=== PATIENT | female | born 1980 | race Caucasian/White ===

== ENCOUNTER 2020-03-08 18:18 | Emergency (ER) | payer MEDICAID ==
--- NOTE | 2020-03-08 20:13 | EDM.PDOC ---
ED HPI GENERAL MEDICAL PROBLEM - General Chief Complaint: Diabetic Complaint Stated Complaint: HIGH BLOOD SUGAR Time Seen by Provider: 03/08/20 19:30 Source of Information: Reports: Patient History Limitations: Reports: No Limitations - History of Present Illness INITIAL COMMENTS - FREE TEXT/NARRATIVE: 39-year-old female with history of type 2 diabetes for several years presents to this emergency department for evaluation of 3 concerns that include 1. Burning and numbness in both feet, 2. Constipation with no bowel movement in past 2 days and 3. Intermittent dizziness. Patient monitors blood sugars regularly and tend to run in the 200 range. Patient unaware of what and HA1C is or what her last one is. Patient reports compliance with her medication regimen and is not on insulin. Patient reports that the above symptoms are all chronic and not acute. She states that her primary care doctor wanted to see what the medications would do for her symptoms last time she saw him about 1 month ago. Patient denies any fever, vomiting, diarrhea. No other symptoms reported at this time. Patient reports that she does monitor her feet daily with inspection. Foot Pain Score (Numeric/FACES): 9 - Related Data Allergies Allergy/AdvReac Type Severity Reaction Status Date / Time bee venom protein (honey bee) Allergy Other Verified 03/08/20 19:20 codeine Allergy Other Verified 03/08/20 19:20 Home Meds: Home Meds Albuterol Sulfate [Proair Hfa] 8.5 gm IH Q4H 03/08/20 [History] Albuterol [Proventil Neb Soln] 2.5 mg .XX Q6H PRN 03/08/20 [History] Aspirin 81 mg PO DAILY 03/08/20 [History] Budesonide [Pulmicort] 0.5 mg INH ASDIRECTED PRN 03/08/20 [History] Cetirizine [ZyrTEC] 10 mg PO DAILY 03/08/20 [History] Colestipol [Colestipol HCl] 1 gm PO DAILY 03/08/20 [History] EPINEPHrine [Auvi-Q] 1 injection SQ ASDIRECTED PRN 03/08/20 [History] Lactase [Lactaid] 3,000 unit PO DAILY 03/08/20 [History] Levothyroxine [Synthroid] 100 mcg PO ACBREAKFAST 03/08/20 [History] Mirtazapine 30 mg PO BEDTIME 03/08/20 [History] Multivit,Iron,Minerals/Lutein [Essential Balance] 1 tab PO DAILY 03/08/20 [History] OLANZapine [Olanzapine] 20 mg PO DAILY 03/08/20 [History] OXcarbazepine [Oxcarbazepine] 600 mg PO BID 03/08/20 [History] Propranolol HCl [Propranolol] 80 mg PO DAILY 03/08/20 [History] clonazePAM [Clonazepam] 1 mg PO BID 03/08/20 [History] glipiZIDE [Glipizide ER] 10 mg PO DAILY 03/08/20 [History] hydrOXYzine HCL [Hydroxyzine HCl] 50 mg PO BEDTIME 03/08/20 [History] lamoTRIgine [Lamotrigine] 100 mg PO BID 03/08/20 [History] metroNIDAZOLE [metroNIDAZOLE 0.75% Cream] 1 applic TOP BID 03/08/20 [History] polyethylene glycoL 3350 [MiraLAX] 17 gm PO BEDTIME PRN #7 packet 03/08/20 [Rx] Past Medical History HEENT History: Reports: Impaired Vision Respiratory History: Reports: Asthma, Sleep Apnea Other Gastrointestinal History: constipation 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: Musculoskeletal History: Reports: Arthritis Other Musculoskeletal History: in feet Neurological History: Reports: Migraines, Seizure Psychiatric History: Reports: Anxiety, Depression, PTSD Endocrine/Metabolic History: Reports: Diabetes, Type II Dermatologic History: Reports: Eczema Other Dermatologic History: severe dry skin - Past Surgical History Female Surgical History: Reports: Section, Mastectomy Other Female Surgeries/Procedures: bilateral mastectomy for cysts Endocrine Surgical History: Reports: Thyroidectomy Social & Family History - Family History Family Medical History: Noncontributory - Tobacco Use Smoking Status *Q: Never Smoker - Caffeine Use Caffeine Use: Reports: Coffee - Recreational Drug Use Recreational Drug Use: No ED ROS GENERAL - Review of Systems Review Of Systems: Comprehensive ROS is negative, except as noted in HPI. ED EXAM GENERAL NO PERIP PULSE - Physical Exam Exam: See Below Exam Limited By: No Limitations General Appearance: Alert Ears: Normal External Exam, Hearing Grossly Normal Nose: Normal Inspection, Normal Mucosa Throat/Mouth: Normal Inspection, Normal Lips, Normal Teeth, Normal Gums, Normal Oropharynx, Normal Voice, No Airway Compromise Head: Atraumatic, Normocephalic Neck: Normal Inspection, Supple, Non-Tender, Full Range of Motion Respiratory/Chest: No Respiratory Distress, Lungs Clear, Normal Breath Sounds, No Accessory Muscle Use, Chest Non-Tender Cardiovascular: Normal Peripheral Pulses, Regular Rate, Rhythm, No Edema, No Gallop, No JVD, No Murmur, No Rub GI/Abdominal: Normal Bowel Sounds, Soft, Non-Tender, No Organomegaly, No Distention, No Abnormal Bruit, No Mass Back Exam: Normal Inspection, Full Range of Motion, NT Extremities: Normal Inspection, Normal Range of Motion, Non-Tender, Normal Capillary Refill, No Pedal Edema Neurological: Alert, Oriented, CN II-XII Intact, Normal Cognition, Normal Gait, No Motor/Sensory Deficits Skin Exam: Warm, Dry, Intact Course - Vital Signs Last Recorded V/S: Last Vital Signs Temp 98.0 F 03/08/20 19:14 Pulse 91 03/08/20 19:14 Resp 16 03/08/20 19:14 BP 132/75 03/08/20 19:14 Pulse Ox 96 03/08/20 19:14 - Orders/Labs/Meds Labs: Laboratory Tests 03/08/20 03/08/20 03/08/20 Range/Units 19:54 19:54 19:54 WBC 9.1 (4.5-11.0) K/uL RBC 4.11 (3.30-5.50) M/uL Hgb 12.4 (12.0-15.0) g/dL Hct 36.3 (36.0-48.0) % MCV 88 (80-98) fL MCH 30 (27-31) pg MCHC 34 (32-36) % Plt Count 323 (150-400) K/uL VBG pH 7.394 (7.350-7.450) Sodium 143 (140-148) mmol/L Potassium 4.0 (3.6-5.2) mmol/L Chloride 107 (100-108) mmol/L Carbon Dioxide 26 (21-32) mmol/L Anion Gap 10.4 (5.0-14.0) mmol/L BUN 7 (7-18) mg/dL Creatinine 0.9 (0.6-1.0) mg/dL Est Cr Clr Drug Dosing 89.85 mL/min Estimated GFR (MDRD) > 60 (>60) Glucose 166 H (74-106) mg/dL Calcium 9.0 (8.5-10.1) mg/dL Departure - Departure Time of Disposition: 21:00 Disposition: Home, Self-Care 01 Condition: Good Clinical Impression: Hypoglycemia, Diabetic neuropathy, Diabetic gastroparesis, Constipation - Discharge Information Prescriptions: polyethylene glycoL 3350 [MiraLAX] 17 gm PO BEDTIME PRN #7 packet PRN Reason: Constipation Instructions: Diabetes Mellitus and Foot Care, Neuropathic Pain, Hypoglycemia, Constipation, Adult Referrals: Norberto Conway NP [Primary Care Provider] - Forms: ED Department Discharge Additional Instructions: 1. Schedule a follow-up appointment in the next 5 to 10 days with your primary care doctor for discussion of your diabetic management, neuropathy and other symptoms. 2. Continue to take your medications as directed. 3. Consider taking a fiber supplement, increase water intake and utilize MiraLAX as directed to facilitate regular bowel movements and decrease constipation. 4. Visually inspect your feet daily. 5. Seek immediate medical attention with any rapidly worsening symptoms or concerns. Sepsis Event Note (ED) - Evaluation Sepsis Screening Result: No Definite Risk - Focused Exam Vital Signs: Vital Signs Temp Pulse Resp BP Pulse Ox 03/08/20 19:14 98.0 F 91 16 132/75 96 - Assessment/Plan Assessment:: 39-year-old female with type 2 diabetes managed with oral anti-hyperglycemics presents with concerns regarding diabetic neuropathy of the feet. This is not an acute problem. She does not have any acute medical emergency. There is no evidence of ketoacidosis or other diabetic crisis. She has no evidence of foot ulceration. She is advised to schedule follow-up with her primary care doctor to discuss diabetic neuropathy and management options. In addition she complains of constipation without evidence of obstruction. Advised on increase water intake, addition of fiber to diet and use of MiraLAX. Patient also reports dizziness. She is asymptomatic at this time. Diagnostic labs reviewed and within normal limits. Medically stable. Advise further outpatient evaluation. Medication for hospitalization and further emergency department testing at this time. Medical screening examination completed patient is medically stable. Discharge home. Plan: 1. Continue to take your outpatient medications as directed by your primary care doctor. 2. Schedule a follow-up appointment with your primary care doctor in the next 5 to 10 days to discuss your diabetic management plan and diabetic neuropathy of the feet. 3. Closely monitor your feet with visual inspection daily to ensure no developing ulcerations. 4. Increase your water intake and add fiber to your diet. May use a laxative such as MiraLAX to help facilitate bowel movements and decrease constipation. 5. Seek immediate medical attention in an emergency setting if you develop rapidly worsening symptoms or concerns.
== END 2020-03-08 21:57 | disposition home or self-care (01) ==
LOC: JP.ED 18:18
DX: E11.40 Type 2 diabetes mellitus with diabetic neuropathy, unspecified (principal); E11.649 Type 2 diabetes mellitus with hypoglycemia without coma; E11.43 Type 2 diabetes mellitus with diabetic autonomic (poly)neuropathy; K31.84 Gastroparesis; K59.00 Constipation, unspecified; J45.909 Unspecified asthma, uncomplicated; M19.90 Unspecified osteoarthritis, unspecified site; Z79.82 Long term (current) use of aspirin; F41.9 Anxiety disorder, unspecified; F32.9 Major depressive disorder, single episode, unspecified; Z79.899 Other long term (current) drug therapy; Z91.030 Bee allergy status; Z88.5 Allergy status to narcotic agent
CPT/HCPCS: 36415; 80048; 82800; 85027; 99283; 99284

== ENCOUNTER 2020-05-23 13:59 | Emergency (ER) | payer MEDICAID ==
--- NOTE | 2020-05-23 15:39 | EDM.PDOC ---
ED HPI GENERAL MEDICAL PROBLEM - General Chief Complaint: General Stated Complaint: NAUSEA, LIGHTHEADED, ALLERGIES Time Seen by Provider: 05/23/20 15:29 Source of Information: Reports: Patient, RN Notes Reviewed History Limitations: Reports: No Limitations - History of Present Illness INITIAL COMMENTS - FREE TEXT/NARRATIVE: 40-year-old female presents emergency department a complaint of shortness of breath runny nose and chest tightness when she is in her house, she admits to smelling something funny in the house since she goes outside of the house all of her symptoms resolved. This has been going on for the last couple of weeks - Related Data Allergies Allergy/AdvReac Type Severity Reaction Status Date / Time bee venom protein (honey bee) Allergy Other Verified 05/23/20 14:26 codeine Allergy Other Verified 05/23/20 14:26 Home Meds: Home Meds Albuterol Sulfate [Proair Hfa] 8.5 gm IH Q4H 03/08/20 [History] Albuterol [Proventil Neb Soln] 2.5 mg .XX Q6H PRN 03/08/20 [History] Aspirin 81 mg PO DAILY 03/08/20 [History] Budesonide [Pulmicort] 0.5 mg INH ASDIRECTED PRN 03/08/20 [History] Cetirizine [ZyrTEC] 10 mg PO DAILY 03/08/20 [History] Colestipol [Colestipol HCl] 1 gm PO DAILY 03/08/20 [History] EPINEPHrine [Auvi-Q] 1 injection SQ ASDIRECTED PRN 03/08/20 [History] Lactase [Lactaid] 3,000 unit PO DAILY 03/08/20 [History] Levothyroxine [Synthroid] 100 mcg PO ACBREAKFAST 03/08/20 [History] Mirtazapine 30 mg PO BEDTIME 03/08/20 [History] Multivit,Iron,Minerals/Lutein [Essential Balance] 1 tab PO DAILY 03/08/20 [History] OLANZapine [Olanzapine] 20 mg PO DAILY 03/08/20 [History] OXcarbazepine [Oxcarbazepine] 600 mg PO BID 03/08/20 [History] Propranolol HCl [Propranolol] 80 mg PO DAILY 03/08/20 [History] clonazePAM [Clonazepam] 1 mg PO BID 03/08/20 [History] glipiZIDE [Glipizide ER] 10 mg PO DAILY 03/08/20 [History] hydrOXYzine HCL [Hydroxyzine HCl] 50 mg PO BEDTIME 03/08/20 [History] lamoTRIgine [Lamotrigine] 100 mg PO BID 03/08/20 [History] metroNIDAZOLE [metroNIDAZOLE 0.75% Cream] 1 applic TOP BID 03/08/20 [History] polyethylene glycoL 3350 [MiraLAX] 17 gm PO BEDTIME PRN #7 packet 03/08/20 [Rx] Past Medical History HEENT History: Reports: Impaired Vision Respiratory History: Reports: Asthma, Sleep Apnea Gastrointestinal History: Reports: Other (See Below) Other Gastrointestinal History: constipation 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 History: Reports: 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: Musculoskeletal History: Reports: Arthritis Other Musculoskeletal History: in feet Neurological History: Reports: Migraines, Seizure Psychiatric History: Reports: Anxiety, Depression, PTSD Endocrine/Metabolic History: Reports: Diabetes, Type II, Obesity/BMI 30+ Dermatologic History: Reports: Eczema Other Dermatologic History: severe dry skin - Past Surgical History Head Surgeries/Procedures: Reports: None HEENT Surgical History: Reports: None Respiratory Surgical History: Reports: None GI Surgical History: Reports: None Female Surgical History: Reports: Section, Mastectomy Other Female Surgeries/Procedures: bilateral mastectomy for cysts Endocrine Surgical History: Reports: Thyroidectomy Neurological Surgical History: Reports: None Musculoskeletal Surgical History: Reports: None Dermatological Surgical History: Reports: None Social & Family History - Family History Family Medical History: No Pertinent Family History - Tobacco Use Tobacco Use Status *Q: Never Tobacco User - Caffeine Use Caffeine Use: Reports: Coffee - Recreational Drug Use Recreational Drug Use: No ED ROS GENERAL - Review of Systems Review Of Systems: See Below Constitutional: Reports: No Symptoms HEENT: Reports: Rhinitis, Sinus Problem Respiratory: Reports: Shortness of Breath, Cough Cardiovascular: Reports: Dyspnea on Exertion ED EXAM, GENERAL - Physical Exam Exam: See Below Exam Limited By: No Limitations General Appearance: Alert, WD/WN, No Apparent Distress Nose: Normal Inspection, Normal Mucosa, No Blood Respiratory/Chest: No Respiratory Distress, Lungs Clear, Normal Breath Sounds, No Accessory Muscle Use, Chest Non-Tender Cardiovascular: Regular Rate, Rhythm, No Murmur Course - Vital Signs Last Recorded V/S: Last Vital Signs Temp 96.6 F L 05/23/20 14:29 Pulse 97 05/23/20 14:29 Resp 16 05/23/20 14:29 BP 132/88 05/23/20 14:29 Pulse Ox 98 05/23/20 14:29 Departure - Departure Time of Disposition: 15:38 Disposition: Home, Self-Care 01 Condition: Fair Clinical Impression: Environmental allergies - Discharge Information Instructions: Allergies, Adult, [id number] Referrals: Norberto Conway CELL TENDER HELPER [Primary Care Provider] - Additional Instructions: Try the albuterol inhaler as needed for the symptoms of shortness of breath, recommend trying antihistamines such as Zyrtec to see if this helps with allergy symptoms, it will be difficult to identify the allergy with in your house, please followup with your primary care provider in 5-10 days if not better, please call return to the emergency department with worsening of symptoms. Sepsis Event Note (ED) - Evaluation Sepsis Screening Result: No Definite Risk - Focused Exam Vital Signs: Vital Signs Temp Pulse Resp BP Pulse Ox 05/23/20 14:29 96.6 F L 97 16 132/88 98 05/23/20 14:28 96.6 F L 97 16 132/88 98 - Assessment/Plan Plan: Assessment Acuity = acute Site and laterality = environmental allergies Etiology = unknown Manifestations = none Location of injury = Home Lab values = none Plan Prescription written for albuterol inhaler, recommended antihistamines [id number] follow-up primary care 5 to 10 days if not better This note was dictated using [employer] voice recognition software please call with any questions on syntax or grammar.
== END 2020-05-23 15:46 | disposition home or self-care (01) ==
LOC: JP.ED 13:59
DX: J30.2 Other seasonal allergic rhinitis (principal); F41.9 Anxiety disorder, unspecified; F32.9 Major depressive disorder, single episode, unspecified; E11.9 Type 2 diabetes mellitus without complications; E66.9 Obesity, unspecified; Z68.33 Body mass index [BMI] 33.0-33.9, adult; Z88.5 Allergy status to narcotic agent; Z91.030 Bee allergy status; Z79.82 Long term (current) use of aspirin; Z79.899 Other long term (current) drug therapy; Z79.84 Long term (current) use of oral hypoglycemic drugs
CPT/HCPCS: 99283

== ENCOUNTER 2020-07-18 16:21 | Emergency (ER) | payer MEDICAID ==
[2020-07-18] MEDS ORDERED: Sodium Chloride 0.9% 10 ML Syringe FLUSH PRN (18:09)
[2020-07-18] MEDS ORDERED: Lactated Ringers 1,000 ML IV SCH (18:15)
--- NOTE | 2020-07-18 18:29 | EDM.PDOC ---
ED HPI GENERAL MEDICAL PROBLEM - General Chief Complaint: General Stated Complaint: SEIZURES Time Seen by Provider: 07/18/20 18:02 Source of Information: Reports: Patient, RN Notes Reviewed History Limitations: Reports: No Limitations - History of Present Illness INITIAL COMMENTS - FREE TEXT/NARRATIVE: 40-year-old female presents emergency department a complaint of not feeling well and increased seizure activity, she has a known history of seizure disorders however she is not on any seizure medication was on Lamictal in the past but this was stopped by one of her physicians. She states over the last 5 days she has been feeling more poorly nausea vomiting diarrhea and has had increased seizures no fever - Related Data Allergies Allergy/AdvReac Type Severity Reaction Status Date / Time bee venom protein (honey bee) Allergy Other Verified 07/18/20 17:46 codeine Allergy Other Verified 07/18/20 17:46 Home Meds: Home Meds Albuterol Sulfate [Proair Hfa] 8.5 gm IH Q4H 03/08/20 [History] Albuterol [Proventil Neb Soln] 2.5 mg .XX Q6H PRN 03/08/20 [History] Aspirin 81 mg PO DAILY 03/08/20 [History] Budesonide [Pulmicort] 0.5 mg INH ASDIRECTED PRN 03/08/20 [History] Cetirizine [ZyrTEC] 10 mg PO DAILY 03/08/20 [History] Colestipol [Colestipol HCl] 1 gm PO DAILY 03/08/20 [History] EPINEPHrine [Auvi-Q] 1 injection SQ ASDIRECTED PRN 03/08/20 [History] Lactase [Lactaid] 3,000 unit PO DAILY 03/08/20 [History] Levothyroxine [Synthroid] 100 mcg PO ACBREAKFAST 03/08/20 [History] Mirtazapine 30 mg PO BEDTIME 03/08/20 [History] Multivit,Iron,Minerals/Lutein [Essential Balance] 1 tab PO DAILY 03/08/20 [History] OLANZapine [Olanzapine] 20 mg PO DAILY 03/08/20 [History] OXcarbazepine [Oxcarbazepine] 600 mg PO BID 03/08/20 [History] Propranolol HCl [Propranolol] 80 mg PO DAILY 03/08/20 [History] clonazePAM [Clonazepam] 1 mg PO BID 03/08/20 [History] glipiZIDE [Glipizide ER] 10 mg PO DAILY 03/08/20 [History] hydrOXYzine HCL [Hydroxyzine HCl] 50 mg PO BEDTIME 03/08/20 [History] lamoTRIgine [Lamotrigine] 100 mg PO BID 03/08/20 [History] polyethylene glycoL 3350 [MiraLAX] 17 gm PO BEDTIME PRN #7 packet 03/08/20 [Rx] Insulin Glarg,Human.Rec.Analog [Lantus Solostar] 0 mg SQ BEDTIME 07/18/20 [History] Past Medical History HEENT History: Reports: Impaired Vision Respiratory History: Reports: Asthma, Sleep Apnea Gastrointestinal History: Reports: Other (See Below) Other Gastrointestinal History: constipation 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 History: Reports: None 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: Musculoskeletal History: Reports: Arthritis Other Musculoskeletal History: in feet Neurological History: Reports: Migraines, Seizure Psychiatric History: Reports: Anxiety, Depression, PTSD Endocrine/Metabolic History: Reports: Diabetes, Type II, Obesity/BMI 30+ Dermatologic History: Reports: Eczema Other Dermatologic History: severe dry skin - Past Surgical History Head Surgeries/Procedures: Reports: None HEENT Surgical History: Reports: None Respiratory Surgical History: Reports: None GI Surgical History: Reports: None Female Surgical History: Reports: Section, Mastectomy Other Female Surgeries/Procedures: bilateral mastectomy for cysts Endocrine Surgical History: Reports: Thyroidectomy Neurological Surgical History: Reports: None Musculoskeletal Surgical History: Reports: None Dermatological Surgical History: Reports: None Social & Family History - Family History Family Medical History: No Pertinent Family History - Tobacco Use Tobacco Use Status *Q: Never Tobacco User - Caffeine Use Caffeine Use: Reports: Coffee - Recreational Drug Use Recreational Drug Use: No ED ROS GENERAL - Review of Systems Review Of Systems: See Below Constitutional: Reports: No Symptoms HEENT: Reports: No Symptoms Respiratory: Reports: No Symptoms Cardiovascular: Reports: No Symptoms GI/Abdominal: Reports: Diarrhea, Nausea, Vomiting : Reports: No Symptoms Neurological: Reports: Seizure ED EXAM, GENERAL - Physical Exam Exam: See Below Exam Limited By: No Limitations General Appearance: Alert, WD/WN, No Apparent Distress Respiratory/Chest: No Respiratory Distress, Lungs Clear, Normal Breath Sounds, No Accessory Muscle Use, Chest Non-Tender Cardiovascular: Regular Rate, Rhythm, No Murmur GI/Abdominal: Soft, Non-Tender Extremities: No Pedal Edema Course - Vital Signs Last Recorded V/S: Last Vital Signs Temp 97.6 F 07/18/20 17:51 Pulse 83 07/18/20 20:33 Resp 16 07/18/20 17:51 BP 124/82 07/18/20 20:33 Pulse Ox 98 07/18/20 17:51 - Orders/Labs/Meds Orders: Active Orders 24 hr Category Date Time Status Peripheral IV Care [RC] . DIRECTED Care 07/18/20 18:11 Active CORONAVIRUS COVID-19, DANK Urgent Lab 07/18/20 18:40 Received Lactated Ringers [Ringers, Lactated] 1,000 ml Med 07/18/20 18:15 Active IV ASDIRECTED Sodium Chloride 0.9% [Saline Flush] Med 07/18/20 18:09 Active 10 ml FLUSH ASDIRECTED PRN Peripheral IV Insertion Adult [OM.PC] Urgent Oth 07/18/20 18:09 Ordered Medication Orders Lactated Ringer's (Ringers, Lactated) 1,000 mls @ 500 mls/hr IV ASDIRECTED JEAN Last Admin: 07/18/20 18:32 Dose: 500 mls/hr Documented by: FERNANDO Sodium Chloride (Saline Flush) 10 ml FLUSH ASDIRECTED PRN PRN Reason: Keep Vein Open Last Admin: 07/18/20 18:36 Dose: 10 ml Documented by: FERNANDO Labs: Laboratory Tests 07/18/20 07/18/20 07/18/20 Range/Units 18:15 18:15 18:15 WBC 11.2 H (4.5-11.0) K/uL RBC 4.45 (3.30-5.50) M/uL Hgb 13.5 (12.0-15.0) g/dL Hct 39.5 (36.0-48.0) % MCV 89 (80-98) fL MCH 30 (27-31) pg MCHC 34 (32-36) % Plt Count 325 (150-400) K/uL Neut % (Auto) 62 (36-66) % Lymph % (Auto) 27 (24-44) % [place] % (Auto) 9 H (2-6) % Eos % (Auto) 1 L (2-4) % Baso % (Auto) 1 (0-1) % Sodium 139 L (140-148) mmol/L Potassium 4.3 (3.6-5.2) mmol/L Chloride 104 (100-108) mmol/L Carbon Dioxide 24 (21-32) mmol/L Anion Gap 15.3 H (5.0-14.0) mmol/L BUN 7 (7-18) mg/dL Creatinine 0.7 (0.6-1.0) mg/dL Est Cr Clr Drug Dosing 122.05 mL/min Estimated GFR (MDRD) > 60 (>60) Glucose 119 H (74-106) mg/dL Lactic Acid 1.7 (0.4-2.0) mmol/L Calcium 9.1 (8.5-10.1) mg/dL Total Bilirubin 0.3 (0.2-1.0) mg/dL AST 19 (15-37) U/L ALT 31 (12-78) U/L Alkaline Phosphatase 127 H (46-116) U/L Troponin I < 0.017 (0.000-0.056) ng/mL Total Protein 7.3 (6.4-8.2) g/dL Albumin 3.9 (3.4-5.0) g/dL Globulin 3.4 (2.3-3.5) g/dL Albumin/Globulin Ratio 1.1 L (1.2-2.2) Urine Color (YELLOW) Urine Appearance (CLEAR) Urine pH (5.0-8.0) Ur Specific [place] (1.008-1.030) Urine Protein (NEGATIVE) mg/dL Urine Glucose (UA) (NEGATIVE) mg/dL Urine Ketones (NEGATIVE) mg/dL Urine Occult Blood (NEGATIVE) Urine Nitrite (NEGATIVE) Urine Bilirubin (NEGATIVE) Urine Urobilinogen (0.2-1.0) EU/dL Ur Leukocyte Esterase (NEGATIVE) Urine RBC (0-5) Urine WBC (0-5) Ur Epithelial Cells Amorphous Sediment Urine Bacteria Urine Mucus 07/18/20 Range/Units 19:45 WBC (4.5-11.0) K/uL RBC (3.30-5.50) M/uL Hgb (12.0-15.0) g/dL Hct (36.0-48.0) % MCV (80-98) fL MCH (27-31) pg MCHC (32-36) % Plt Count (150-400) K/uL Neut % (Auto) (36-66) % Lymph % (Auto) (24-44) % [place] % (Auto) (2-6) % Eos % (Auto) (2-4) % Baso % (Auto) (0-1) % Sodium (140-148) mmol/L Potassium (3.6-5.2) mmol/L Chloride (100-108) mmol/L Carbon Dioxide (21-32) mmol/L Anion Gap (5.0-14.0) mmol/L BUN (7-18) mg/dL Creatinine (0.6-1.0) mg/dL Est Cr Clr Drug Dosing mL/min Estimated GFR (MDRD) (>60) Glucose (74-106) mg/dL Lactic Acid (0.4-2.0) mmol/L Calcium (8.5-10.1) mg/dL Total Bilirubin (0.2-1.0) mg/dL AST (15-37) U/L ALT (12-78) U/L Alkaline Phosphatase (46-116) U/L Troponin I (0.000-0.056) ng/mL Total Protein (6.4-8.2) g/dL Albumin (3.4-5.0) g/dL Globulin (2.3-3.5) g/dL Albumin/Globulin Ratio (1.2-2.2) Urine Color Yellow (YELLOW) Urine Appearance Slightly cloudy A (CLEAR) Urine pH 5.5 (5.0-8.0) Ur Specific [place] >= 1.030 (1.008-1.030) Urine Protein Negative (NEGATIVE) mg/dL Urine Glucose (UA) Negative (NEGATIVE) mg/dL Urine Ketones Negative (NEGATIVE) mg/dL Urine Occult Blood Negative (NEGATIVE) Urine Nitrite Negative (NEGATIVE) Urine Bilirubin Small H (NEGATIVE) Urine Urobilinogen 0.2 (0.2-1.0) EU/dL Ur Leukocyte Esterase Negative (NEGATIVE) Urine RBC 0-5 (0-5) Urine WBC Not seen (0-5) Ur Epithelial Cells Many Amorphous Sediment Not seen Urine Bacteria Few Urine Mucus Few Meds: Medications Generic Name Dose Route Start Last Admin Trade Name Freq PRN Reason Stop Dose Admin Lactated Ringer's 1,000 mls @ 500 mls/hr 07/18/20 18:15 07/18/20 18:32 Ringers, Lactated IV 500 mls/hr ASDIRECTED JEAN Administration Sodium Chloride 10 ml 07/18/20 18:09 07/18/20 18:36 Saline Flush FLUSH 10 ml ASDIRECTED PRN Administration Keep Vein Open Discontinued Medications Generic Name Dose Route Start Last Admin Trade Name Tj PRN Reason Stop Dose Admin Ondansetron HCl 4 mg 07/18/20 20:02 07/18/20 20:20 Zofran IVPUSH 07/18/20 20:03 4 mg ONETIME ONE Administration Departure - Departure Time of Disposition: 20:38 Disposition: Home, Self-Care 01 Condition: Fair Clinical Impression: Gastroenteritis - Discharge Information Referrals: Norberto Conway, [employer] [Primary Care Provider] - Forms: ED Department Discharge Additional Instructions: Continue with your regular medications, use Zofran as needed for nausea vomiting symptoms, continue to push fluids please followup with your primary care provider in 3-5 days if not better, please call return to the emergency department with worsening of symptoms. You will need to talk to your primary care provider about lamotrigine this was your primary seizure medication Sepsis Event Note (ED) - Evaluation Sepsis Screening Result: No Definite Risk - Focused Exam Vital Signs: Vital Signs Temp Pulse Resp BP Pulse Ox 07/18/20 20:33 83 124/82 07/18/20 18:30 84 123/77 07/18/20 17:51 97.6 F 87 16 126/87 98 07/18/20 17:29 97.6 F 87 16 126/87 98 - My Orders Last 24 Hours: My Active Orders 07/18/20 18:09 Sodium Chloride 0.9% [Saline Flush] 10 ml FLUSH ASDIRECTED PRN Peripheral IV Insertion Adult [OM.PC] Urgent 07/18/20 18:11 Peripheral IV Care [RC] . DIRECTED 07/18/20 18:15 Lactated Ringers [Ringers, Lactated] 1,000 ml IV ASDIRECTED 07/18/20 18:40 CORONAVIRUS COVID-19, DANK Urgent - Assessment/Plan Last 24 Hours: My Active Orders 07/18/20 18:09 Sodium Chloride 0.9% [Saline Flush] 10 ml FLUSH ASDIRECTED PRN Peripheral IV Insertion Adult [OM.PC] Urgent 07/18/20 18:11 Peripheral IV Care [RC] . DIRECTED 07/18/20 18:15 Lactated Ringers [Ringers, Lactated] 1,000 ml IV ASDIRECTED 07/18/20 18:40 CORONAVIRUS COVID-19, DANK Urgent Plan: Assessment Acuity = acute Site and laterality = gastroenteritis Etiology = probably viral Manifestations = nausea vomiting Location of injury = Home Lab values = CBC CMP urinalysis unremarkable Covid test is pending Plan She had some improvement with Zofran provided in the emergency department as well as 1 L of fluids prescription written for Zofran 4 mg ODT 1 tab p.o. 3 times daily as needed total #5 follow-up with your primary care in the next 3 to 5 days. She does admit she is not taking the lamotrigine which is her primary seizure medication she will contact her primary care for further evaluation of that medication This note was dictated using [employer] voice recognition software please call with any questions on syntax or grammar.
[2020-07-18] MEDS ORDERED: Ondansetron 4 MG/2 ML SDV IVPUSH ONE (20:02)
== END 2020-07-18 20:52 | disposition home or self-care (01) ==
LOC: JP.ED 16:21
DX: K52.9 Noninfective gastroenteritis and colitis, unspecified (principal); J45.909 Unspecified asthma, uncomplicated; M19.90 Unspecified osteoarthritis, unspecified site; E11.9 Type 2 diabetes mellitus without complications; R56.9 Unspecified convulsions; Z79.84 Long term (current) use of oral hypoglycemic drugs; E66.9 Obesity, unspecified; Z68.32 Body mass index [BMI] 32.0-32.9, adult; Z91.030 Bee allergy status; Z88.5 Allergy status to narcotic agent; Z79.82 Long term (current) use of aspirin; Z79.899 Other long term (current) drug therapy; Z20.822 Contact with and (suspected) exposure to COVID-19
CPT/HCPCS: 36415; 80053; 81001; 83605; 84484; 85025; 87635; 96374; 99284; J2405; J7120; U0002

== ENCOUNTER 2020-07-22 09:20 | Emergency (ER) | payer MEDICAID ==
[2020-07-22] MEDS ORDERED: Acetaminophen 500 MG Tab PO ONE (10:32)
--- NOTE | 2020-07-22 10:38 | EDM.PDOC ---
ED HPI GENERAL MEDICAL PROBLEM - General Chief Complaint: Neurological Problem Stated Complaint: SOB / UNSTEADY WHEN WALKING / 3 SEIZURES YESTERDAY Time Seen by Provider: 07/22/20 10:15 Source of Information: Reports: Patient, RN. Denies: Old Records History Limitations: Reports: Other (limited records) - History of Present Illness INITIAL COMMENTS - FREE TEXT/NARRATIVE: 40 yo female presents with similar complaints to what she reported a few days ago when she was here. Recently moved here from the [place], [place] area to be with her "dalila'". Did see a neurologist in [place], not here. When she was last seen here she had been off her lamictal, but is now back on it and says it has not changed her falling or seizure frequency. Never has tongue biting or urinary incontinence. Says she last fell yesterday and injured her R hip, R knee, and R foot. She took ibuprofen and naproxen without relief. When last here her blood work and urine tests were unremarkable. She was asked to see her primary in the clinic in follow up after her recent ER visit, she did not do this. Had a neuro consult 11/10/19 in [place], [place] at the [facility]. Her EEG at that time was negative and he expressed doubt that she actually has epilepsy. He suggested further studies which she declined because "she was moving to [place]". He recommended she follow up with an epileptologist in the near future for further work up. Onset: Other (last yesterday) Duration: Intermittent Location: Reports: Generalized Quality: Reports: Ache Severity: Mild Improves with: Reports: None Worsens with: Reports: None Context: Reports: Trauma (from a reported seizure yesterday) Associated Symptoms: Reports: Seizure, Weakness (R leg, chronic). Denies: Chest Pain, Cough, Fever/Chills, Headaches, Nausea/Vomiting Treatments HEAD BAKER: Reports: NSAIDS Bilateral Leg Pain Score (Numeric/FACES): 10 - Related Data Allergies Allergy/AdvReac Type Severity Reaction Status Date / Time bee venom protein (honey bee) Allergy Other Verified 07/18/20 17:46 codeine Allergy Other Verified 07/18/20 17:46 Home Meds: Home Meds Albuterol Sulfate [Proair Hfa] 8.5 gm IH Q4H 03/08/20 [History] Albuterol [Proventil Neb Soln] 2.5 mg .XX Q6H PRN 03/08/20 [History] Aspirin 81 mg PO DAILY 03/08/20 [History] Budesonide [Pulmicort] 0.5 mg INH ASDIRECTED PRN 03/08/20 [History] Cetirizine [ZyrTEC] 10 mg PO DAILY 03/08/20 [History] Colestipol [Colestipol HCl] 1 gm PO DAILY 03/08/20 [History] EPINEPHrine [Auvi-Q] 1 injection SQ ASDIRECTED PRN 03/08/20 [History] Lactase [Lactaid] 3,000 unit PO DAILY 03/08/20 [History] Levothyroxine [Synthroid] 100 mcg PO ACBREAKFAST 03/08/20 [History] Mirtazapine 30 mg PO BEDTIME 03/08/20 [History] Multivit,Iron,Minerals/Lutein [Essential Balance] 1 tab PO DAILY 03/08/20 [History] OLANZapine [Olanzapine] 20 mg PO DAILY 03/08/20 [History] OXcarbazepine [Oxcarbazepine] 600 mg PO BID 03/08/20 [History] Propranolol HCl [Propranolol] 80 mg PO DAILY 03/08/20 [History] clonazePAM [Clonazepam] 1 mg PO BID 03/08/20 [History] glipiZIDE [Glipizide ER] 10 mg PO DAILY 03/08/20 [History] hydrOXYzine HCL [Hydroxyzine HCl] 50 mg PO BEDTIME 03/08/20 [History] lamoTRIgine [Lamotrigine] 100 mg PO BID 03/08/20 [History] polyethylene glycoL 3350 [MiraLAX] 17 gm PO BEDTIME PRN #7 packet 03/08/20 [Rx] Insulin Glarg,Human.Rec.Analog [Lantus Solostar] 0 mg SQ BEDTIME 07/18/20 [History] Past Medical History HEENT History: Reports: Impaired Vision Respiratory History: Reports: Asthma, Sleep Apnea Gastrointestinal History: Reports: Other (See Below) Other Gastrointestinal History: constipation 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 History: Reports: 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: Musculoskeletal History: Reports: Arthritis Other Musculoskeletal History: in feet Neurological History: Reports: Migraines, Seizure Psychiatric History: Reports: Anxiety, Depression, PTSD Endocrine/Metabolic History: Reports: Diabetes, Type II, Obesity/BMI 30+ Dermatologic History: Reports: Eczema Other Dermatologic History: severe dry skin - Past Surgical History Head Surgeries/Procedures: Reports: None HEENT Surgical History: Reports: None Respiratory Surgical History: Reports: None GI Surgical History: Reports: None Female Surgical History: Reports: Section, Mastectomy Other Female Surgeries/Procedures: bilateral mastectomy for cysts Endocrine Surgical History: Reports: Thyroidectomy Neurological Surgical History: Reports: None Musculoskeletal Surgical History: Reports: None Dermatological Surgical History: Reports: None Social & Family History - Family History Family Medical History: No Pertinent Family History - Tobacco Use Tobacco Use Status *Q: Never Tobacco User Second Hand Smoke Exposure: No - Caffeine Use Caffeine Use: Reports: Tea, Other Other Caffeine Use: capacino - Recreational Drug Use Recreational Drug Use: No ED ROS GENERAL - Review of Systems Review Of Systems: See Below Constitutional: Reports: No Symptoms HEENT: Reports: No Symptoms Respiratory: Reports: No Symptoms Cardiovascular: Reports: No Symptoms Endocrine: Reports: No Symptoms GI/Abdominal: Reports: No Symptoms : Reports: No Symptoms Musculoskeletal: Reports: Other (R leg is the worst, but all her extrems hurt) Skin: Reports: No Symptoms Neurological: Reports: Seizure (last yesterday) Psychiatric: Reports: No Symptoms - Physical Exam Exam: See Below Exam Limited By: No Limitations General Appearance: Alert, WD/WN, No Apparent Distress, Obese Eye Exam: Bilateral Eye: Normal Inspection Ears: Normal External Exam, Normal Canal, Hearing Grossly Normal, Normal TMs Nose: Normal Inspection, No Blood Throat/Mouth: Normal Inspection, Normal Lips, Normal Oropharynx, Normal Voice, No Airway Compromise Head Exam: Atraumatic, Normocephalic Neck: Normal Inspection Respiratory/Chest: No Respiratory Distress, Lungs Clear, Normal Breath Sounds, No Accessory Muscle Use Cardiovascular: Regular Rate, Rhythm, No Edema GI/Abdominal: Normal Bowel Sounds, Soft, Non-Tender, No Distention Neuro Exam (Abbreviated): Alert, Oriented, CN II-XII Intact, Normal Cognition, No Motor/Sensory Deficits Back Exam: Normal Inspection Extremities: Normal Inspection, Normal Range of Motion, No Pedal Edema. No: Pedal Edema, Limited Range of Motion (no pain L hip with ROM testing, seems generally weak, worse RLE) Psychiatric: Normal Affect, Normal Mood, Flat Affect Skin Exam: Warm, Dry, Intact, Normal Color, No Rash. No: Ecchymosis (no bruising seen in areas of reported pain), Erythema Course - Vital Signs Last Recorded V/S: Last Vital Signs Temp 36.2 C 07/22/20 10:13 Pulse 76 07/22/20 10:13 Resp 18 07/22/20 10:13 BP 118/69 07/22/20 10:13 Pulse Ox 96 07/22/20 10:13 - Orders/Labs/Meds Meds: Medications Discontinued Medications Generic Name Dose Route Start Last Admin Trade Name Tj PRN Reason Stop Dose Admin Acetaminophen 1,000 mg 07/22/20 10:32 07/22/20 10:42 Tylenol Extra Strength PO 07/22/20 10:33 1,000 mg ONETIME ONE Administration Departure - Departure Time of Disposition: 11:00 Disposition: Home, Self-Care 01 Condition: Fair Clinical Impression: Seizure-like activity - Discharge Information *PRESCRIPTION DRUG MONITORING PROGRAM REVIEWED*: Not Applicable *COPY OF PRESCRIPTION DRUG MONITORING REPORT IN PATIENT TIMI: Not Applicable Referrals: Norberto Conway NP [Primary Care Provider] - Forms: ED Department Discharge Additional Instructions: Take acetaminophen 1000 mg every 6 hrs as needed for pain relief. We requested a neurology consult for you, someone will contact you next week to schedule an appt. F/U with your primary care provider wilfred in the interim. Sepsis Event Note (ED) - Evaluation Sepsis Screening Result: No Definite Risk - Focused Exam Vital Signs: Vital Signs Temp Pulse Resp BP Pulse Ox 07/22/20 10:13 36.2 C 76 18 118/69 96
== END 2020-07-22 11:13 | disposition home or self-care (01) ==
LOC: JP.ED 09:20
DX: R25.9 Unspecified abnormal involuntary movements (principal); J45.909 Unspecified asthma, uncomplicated; M19.90 Unspecified osteoarthritis, unspecified site; E11.9 Type 2 diabetes mellitus without complications; E66.9 Obesity, unspecified; Z68.34 Body mass index [BMI] 34.0-34.9, adult; Z91.030 Bee allergy status; Z88.5 Allergy status to narcotic agent; Z79.82 Long term (current) use of aspirin; Z79.899 Other long term (current) drug therapy; Z79.4 Long term (current) use of insulin
CPT/HCPCS: 99283; A9270; 99282

== ENCOUNTER 2020-09-10 01:01 | Emergency (ER) | payer MEDICAID ==
[2020-09-10] MEDS ORDERED: Phenol/Sodium Phenolate Spray 180 ML Bottle MUCMEM PRN (01:59)
--- NOTE | 2020-09-10 02:01 | EDM.PDOC ---
ED HPI GENERAL MEDICAL PROBLEM - General Chief Complaint: ENT Problem Stated Complaint: SORE THROAT Time Seen by Provider: 09/10/20 01:54 Source of Information: Reports: Patient, Family, RN Notes Reviewed History Limitations: Reports: No Limitations - History of Present Illness INITIAL COMMENTS - FREE TEXT/NARRATIVE: 40-year-old female presents emergency department with a complaint of sore throat, she states that sore throat for 2 days no fevers dry scratchy throat people at work also have similar symptoms with a sore throat that has been going around. No other symptoms - Related Data Allergies Allergy/AdvReac Type Severity Reaction Status Date / Time bee venom protein (honey bee) Allergy Other Verified 09/10/20 01:50 codeine Allergy Other Verified 09/10/20 01:50 Home Meds: Home Meds Albuterol Sulfate [Proair Hfa] 8.5 gm IH Q4H 03/08/20 [History] Albuterol [Proventil Neb Soln] 2.5 mg .XX Q6H PRN 03/08/20 [History] Aspirin 81 mg PO DAILY 03/08/20 [History] Budesonide [Pulmicort] 0.5 mg INH ASDIRECTED PRN 03/08/20 [History] Cetirizine [ZyrTEC] 10 mg PO DAILY 03/08/20 [History] Colestipol [Colestipol HCl] 1 gm PO DAILY 03/08/20 [History] EPINEPHrine [Auvi-Q] 1 injection SQ ASDIRECTED PRN 03/08/20 [History] Lactase [Lactaid] 3,000 unit PO DAILY 03/08/20 [History] Levothyroxine [Synthroid] 100 mcg PO ACBREAKFAST 03/08/20 [History] Mirtazapine 30 mg PO BEDTIME 03/08/20 [History] Multivit,Iron,Minerals/Lutein [Essential Balance] 1 tab PO DAILY 03/08/20 [History] OLANZapine [Olanzapine] 20 mg PO DAILY 03/08/20 [History] OXcarbazepine [Oxcarbazepine] 600 mg PO BID 03/08/20 [History] Propranolol HCl [Propranolol] 80 mg PO DAILY 03/08/20 [History] clonazePAM [Clonazepam] 1 mg PO BID 03/08/20 [History] glipiZIDE [Glipizide ER] 10 mg PO DAILY 03/08/20 [History] hydrOXYzine HCL [Hydroxyzine HCl] 50 mg PO BEDTIME 03/08/20 [History] lamoTRIgine [Lamotrigine] 100 mg PO BID 03/08/20 [History] polyethylene glycoL 3350 [MiraLAX] 17 gm PO BEDTIME PRN #7 packet 03/08/20 [Rx] Insulin Glarg,Human.Rec.Analog [Lantus Solostar] 10 units SQ BEDTIME 07/18/20 [History] Past Medical History HEENT History: Reports: Impaired Vision Respiratory History: Reports: Asthma, Sleep Apnea Gastrointestinal History: Reports: Other (See Below) Other Gastrointestinal History: constipation OFFICE ASSISTANCE History: Reports: Musculoskeletal History: Reports: Arthritis Other Musculoskeletal History: in feet Neurological History: Reports: Migraines, Seizure Psychiatric History: Reports: Anxiety, Depression, PTSD Endocrine/Metabolic History: Reports: Diabetes, Type II, Obesity/BMI 30+ Dermatologic History: Reports: Eczema Other Dermatologic History: severe dry skin - Past Surgical History Head Surgeries/Procedures: Reports: None HEENT Surgical History: Reports: None Respiratory Surgical History: Reports: None GI Surgical History: Reports: None Female Surgical History: Reports: Section, Mastectomy Other Female Surgeries/Procedures: bilateral mastectomy for cysts Endocrine Surgical History: Reports: Thyroidectomy Neurological Surgical History: Reports: None Musculoskeletal Surgical History: Reports: None Dermatological Surgical History: Reports: None Social & Family History - Family History Family Medical History: No Pertinent Family History - Tobacco Use Tobacco Use Status *Q: Never Tobacco User - Caffeine Use Caffeine Use: Reports: Tea, Other Other Caffeine Use: capacino ED ROS ENT - Review of Systems Review Of Systems: See Below Constitutional: Reports: No Symptoms HEENT: Reports: Throat Pain, Throat Swelling Respiratory: Reports: No Symptoms Cardiovascular: Reports: No Symptoms GI/Abdominal: Reports: No Symptoms ED EXAM, ENT - Physical Exam Exam: See Below Text/Narrative:: Mouth mucosa is moist and pink mild amount erythema is appreciated in the posterior pharynx no exudates noted tongue is midline uvula is midline Exam Limited By: No Limitations General Appearance: Alert, WD/WN, No Apparent Distress Respiratory/Chest: No Respiratory Distress Course - Vital Signs Last Recorded V/S: Last Vital Signs Temp 97.2 F 09/10/20 01:48 Pulse 96 09/10/20 01:48 Resp 18 09/10/20 01:48 BP 148/90 H 09/10/20 01:48 Pulse Ox 96 09/10/20 01:48 - Orders/Labs/Meds Orders: Active Orders 24 hr Category Date Time Status COVID-19/FLU A+B/RSV [MOLEC] Stat Lab 09/10/20 01:59 Ordered CULTURE STREP A CONFIRMATION [] Stat Lab 09/10/20 02:06 Results STREP SCRN A RAPID W CULT CONF [RM] Stat Lab 09/10/20 02:06 Results Phenol/Sodium Phenolate [Phenaseptic Liquid] Med 09/10/20 01:59 Active 1 ml MUCMEM Q2H PRN dexAMETHasone [Decadron] Med 09/10/20 02:55 Once 8 mg PO ONETIME ONE Medication Orders Phenol (Phenol/Sodium Phenolate [place] 180 Ml Bottle) 1 ml MUCMEM Q2H PRN PRN Reason: Sore Throat Last Admin: 09/10/20 02:17 Dose: 1 ml Documented by: FERNANDO Meds: Medications Generic Name Dose Route Start Last Admin Trade Name Freq PRN Reason Stop Dose Admin Phenol 1 ml 09/10/20 01:59 09/10/20 02:17 Phenol/Sodium Phenolate [place] 180 Ml Bottle MUCMEM 1 ml Q2H PRN Administration Sore Throat Departure - Departure Time of Disposition: 02:57 Disposition: Home, Self-Care 01 Condition: Fair Clinical Impression: Pharyngitis Qualifiers: Pharyngitis/tonsillitis etiology: unspecified etiology Qualified Code(s): J02.9 - Acute pharyngitis, unspecified - Discharge Information Instructions: Sore Throat, [id number] Referrals: Norberto Conway NP [Primary Care Provider] - Forms: ED Department Discharge Additional Instructions: Continue with symptomatic care, please followup with your primary care provider in 3-5 days if not better, please call return to the emergency department with worsening of symptoms. Sepsis Event Note (ED) - Evaluation Sepsis Screening Result: No Definite Risk - Focused Exam Vital Signs: Vital Signs Temp Pulse Resp BP Pulse Ox 09/10/20 01:48 97.2 F 96 18 148/90 H 96 - My Orders Last 24 Hours: My Active Orders 09/10/20 01:59 COVID-19/FLU A+B/RSV [MOLEC] Stat Phenol/Sodium Phenolate [Phenaseptic Liquid] 1 ml MUCMEM Q2H PRN 09/10/20 02:06 CULTURE STREP A CONFIRMATION [RM] Stat STREP SCRN A RAPID W CULT CONF [RM] Stat 09/10/20 02:55 dexAMETHasone [Decadron] 8 mg PO ONETIME ONE - Assessment/Plan Last 24 Hours: My Active Orders 09/10/20 01:59 COVID-19/FLU A+B/RSV [MOLEC] Stat Phenol/Sodium Phenolate [Phenaseptic Liquid] 1 ml MUCMEM Q2H PRN 09/10/20 02:06 CULTURE STREP A CONFIRMATION [RM] Stat STREP SCRN A RAPID W CULT CONF [RM] Stat 09/10/20 02:55 dexAMETHasone [Decadron] 8 mg PO ONETIME ONE Plan: Assessment Acuity = acute Site and laterality = pharyngitis Etiology = probably viral Manifestations = none Location of injury = Home Lab values = rapid strep is negative culture is pending Covid is negative influenza negative RSV negative Plan Did try some Chloraseptic spray minimal relief also 1 dose dexamethasone elixir 8 mg follow-up primary care 2 to 3 days if not better This note was dictated using [employer] voice recognition software please call with any questions on syntax or grammar.
[2020-09-10] MEDS ORDERED: Dexamethasone 4 MG/ML SDV PO ONE (02:55)
[2020-09-10 04:16] LABS: CORONAVIRUS COVID-19 NAA NEGATIVE (NEGATIVE)
== END 2020-09-10 03:21 | disposition home or self-care (01) ==
LOC: JP.ED 01:01
DX: J02.9 Acute pharyngitis, unspecified (principal); J45.909 Unspecified asthma, uncomplicated; M19.90 Unspecified osteoarthritis, unspecified site; E11.9 Type 2 diabetes mellitus without complications; E66.9 Obesity, unspecified; Z68.31 Body mass index [BMI] 31.0-31.9, adult; Z91.030 Bee allergy status; Z88.5 Allergy status to narcotic agent; Z79.82 Long term (current) use of aspirin; Z79.4 Long term (current) use of insulin; Z79.899 Other long term (current) drug therapy; Z20.822 Contact with and (suspected) exposure to COVID-19
CPT/HCPCS: 0241U; 87081; 87880-QW; 99282; 99283; A9270-GY; J1100

== ENCOUNTER 2021-06-10 10:36 | Emergency (ER) | payer MEDICAID ==
[2021-06-10 13:11] LABS: CORONAVIRUS COVID-19 NAA POSITIVE (NEGATIVE)
--- NOTE | 2021-06-10 13:23 | EDM.PDOC ---
ED HPI GENERAL MEDICAL PROBLEM - General Chief Complaint: ENT Problem Stated Complaint: SORE THROAT/LETHARGIC Time Seen by Provider: 06/10/21 13:18 Source of Information: Reports: Patient History Limitations: Reports: No Limitations - History of Present Illness INITIAL COMMENTS - FREE TEXT/NARRATIVE: pt arrived feeling tired out and weak. She has had a sore throat and a cough. She does not seem to be improving. Onset: Gradual, Other ( started feeling ill about 2 weeks ago. ) Duration: Hour(s): Location: Reports: Chest Associated Symptoms: Reports: Cough, Diaphoresis, Shortness of Breath - Related Data Allergies Allergy/AdvReac Type Severity Reaction Status Date / Time bee venom protein (honey bee) Allergy Other Verified 06/10/21 11:30 codeine Allergy Other Verified 06/10/21 11:30 Home Meds: Home Meds Albuterol Sulfate [Proair Hfa] 8.5 gm IH Q4H 03/08/20 [History] Albuterol [Proventil Neb Soln] 2.5 mg .XX Q6H PRN 03/08/20 [History] Aspirin 81 mg PO DAILY 03/08/20 [History] Budesonide [Pulmicort] 0.5 mg INH ASDIRECTED PRN 03/08/20 [History] Cetirizine [ZyrTEC] 10 mg PO DAILY 03/08/20 [History] Colestipol [Colestipol HCl] 1 gm PO DAILY 03/08/20 [History] EPINEPHrine [Auvi-Q] 1 injection SQ ASDIRECTED PRN 03/08/20 [History] Lactase [Lactaid] 3,000 unit PO DAILY 03/08/20 [History] Levothyroxine [Synthroid] 100 mcg PO ACBREAKFAST 03/08/20 [History] Mirtazapine 30 mg PO BEDTIME 03/08/20 [History] Multivit,Iron,Minerals/Lutein [Essential Balance] 1 tab PO DAILY 03/08/20 [History] OLANZapine [Olanzapine] 20 mg PO DAILY 03/08/20 [History] OXcarbazepine [Oxcarbazepine] 600 mg PO BID 03/08/20 [History] Propranolol HCl [Propranolol] 80 mg PO DAILY 03/08/20 [History] clonazePAM [Clonazepam] 1 mg PO BID 03/08/20 [History] glipiZIDE [Glipizide ER] 10 mg PO DAILY 03/08/20 [History] hydrOXYzine HCL [Hydroxyzine HCl] 50 mg PO BEDTIME 03/08/20 [History] lamoTRIgine [Lamotrigine] 100 mg PO BID 03/08/20 [History] polyethylene glycoL 3350 [MiraLAX] 17 gm PO BEDTIME PRN #7 packet 03/08/20 [Rx] Insulin Glarg,Human.Rec.Analog [Lantus Solostar] 10 units SQ BEDTIME 07/18/20 [History] Past Medical History HEENT History: Reports: Impaired Vision Respiratory History: Reports: Asthma, Sleep Apnea Gastrointestinal History: Reports: Other (See Below) Other Gastrointestinal History: constipation 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 History: Reports: None [employer] History: Reports: Musculoskeletal History: Reports: Arthritis Other Musculoskeletal History: in feet Neurological History: Reports: Migraines, Seizure Psychiatric History: Reports: Anxiety, Depression, PTSD Endocrine/Metabolic History: Reports: Diabetes, Type II, Obesity/BMI 30+ Dermatologic History: Reports: Eczema Other Dermatologic History: severe dry skin - Infectious Disease History Infectious Disease History: Reports: None - Past Surgical History Head Surgeries/Procedures: Reports: None HEENT Surgical History: Reports: None Respiratory Surgical History: Reports: None GI Surgical History: Reports: None Female Surgical History: Reports: Section, Mastectomy Other Female Surgeries/Procedures: bilateral mastectomy for cysts Endocrine Surgical History: Reports: Thyroidectomy Neurological Surgical History: Reports: None Musculoskeletal Surgical History: Reports: None Dermatological Surgical History: Reports: None Social & Family History - Family History Family Medical History: No Pertinent Family History - Tobacco Use Tobacco Use Status *Q: Never Tobacco User - Caffeine Use Caffeine Use: Reports: Tea, Other Other Caffeine Use: capacino ED ROS ENT - Review of Systems Review Of Systems: See Below Constitutional: Reports: Malaise, Weakness HEENT: Reports: Throat Pain Respiratory: Reports: Shortness of Breath, Cough Cardiovascular: Reports: No Symptoms Endocrine: Reports: No Symptoms GI/Abdominal: Reports: No Symptoms : Reports: No Symptoms Musculoskeletal: Reports: No Symptoms Skin: Reports: No Symptoms Neurological: Reports: No Symptoms Psychiatric: Reports: No Symptoms ED EXAM, ENT - Physical Exam Exam: See Below Text/Narrative:: pt arrived with a sore throat. She has been coughing alot. She has been ill about 2 weeks. Exam Limited By: No Limitations General Appearance: Alert, Anxious, Mild Distress Ears: Normal TMs Nose: Normal Inspection Mouth/Throat: Tonsillar Erythema Head: Atraumatic Neck: Lymphadenopathy (R), Lymphadenopathy (L) Respiratory/Chest: Decreased Breath Sounds Cardiovascular: Regular Rate, Rhythm GI/Abdominal: Soft, Non-Tender (Female) Exam: Deferred Rectal (Female) Exam: Deferred Back: Normal Inspection Extremities: Normal Inspection Course - Vital Signs Last Recorded V/S: Last Vital Signs Temp 36.3 C 06/10/21 11:27 Pulse 93 06/10/21 11:27 Resp 15 06/10/21 11:27 BP 110/72 06/10/21 11:27 Pulse Ox 96 06/10/21 11:27 - Orders/Labs/Meds Orders: Active Orders 24 hr Category Date Time Status CULTURE STREP A CONFIRMATION [RM] Stat Lab 06/10/21 12:21 Results STREP SCRN A RAPID W CULT CONF [RM] Stat Lab 06/10/21 12:21 Results Isolation [COMM] Stat Oth 06/10/21 12:11 Ordered Labs: Laboratory Tests 06/10/21 06/10/21 Range/Units 12:10 12:21 WBC 5.5 (4.5-11.0) K/uL RBC 4.33 (3.30-5.50) M/uL Hgb 13.1 (12.0-15.0) g/dL Hct 37.6 (36.0-48.0) % MCV 87 (80-98) fL MCH 30 (27-31) pg MCHC 35 (32-36) % Plt Count 248 (150-400) K/uL Neut % (Auto) 55.7 (36-66) % Lymph % (Auto) 30.4 (24-44) % [place] % (Auto) 13.0 H (2-6) % Eos % (Auto) 0.4 L (2-4) % Baso % (Auto) 0.5 (0-1) % Influenza Type A RNA Negative (NEGATIVE) RSV RNA (INAAT) Negative (NEGATIVE) Influenza Type B RNA Negative (NEGATIVE) SARS-CoV-2 RNA (DANK) Positive H (NEGATIVE) - Re-Assessments/Exams Free Text/Narrative Re-Assessment/Exam: 06/10/21 13:22 strept was neg. Covid was positive. Her wbc is 5000. She is 2 weeks into the illness and is not a canidate for monoclonal therapy. Her o2 sats are good. 06/10/21 13:24 will have pt use some robitussin ac. Departure - Departure Time of Disposition: 13:23 Disposition: Home, Self-Care 01 Condition: Fair Clinical Impression: COVID-19 - Discharge Information Instructions: COVID-19, 10 Things You Can Do to Manage Your COVID-19 Symptoms at Home - [facility] (01/05/2021) Referrals: Norberto Conway NP [Primary Care Provider] - Forms: ED Department Discharge Sepsis Event Note (ED) - Evaluation Sepsis Screening Result: No Definite Risk - My Orders Last 24 Hours: My Active Orders 06/10/21 12:11 Isolation [COMM] Stat 06/10/21 12:21 CULTURE STREP A CONFIRMATION [RM] Stat STREP SCRN A RAPID W CULT CONF [RM] Stat - Assessment/Plan Last 24 Hours: My Active Orders 06/10/21 12:11 Isolation [COMM] Stat 06/10/21 12:21 CULTURE STREP A CONFIRMATION [RM] Stat STREP SCRN A RAPID W CULT CONF [RM] Stat
== END 2021-06-10 13:34 | disposition home or self-care (01) ==
LOC: JP.ED 10:36
DX: U07.1 COVID-19 (principal); J45.909 Unspecified asthma, uncomplicated; E11.9 Type 2 diabetes mellitus without complications; Z91.030 Bee allergy status; Z88.5 Allergy status to narcotic agent; Z79.82 Long term (current) use of aspirin; Z79.899 Other long term (current) drug therapy
CPT/HCPCS: 0241U; 36415; 85025; 87081; 87880; 99284

== ENCOUNTER 2021-06-13 17:15 | Emergency (ER) | payer MEDICAID ==
[2021-06-13] MEDS ORDERED: Sodium Chloride 0.9% 10 ML Syringe FLUSH PRN (18:20)
[2021-06-13] MEDS ORDERED: Ondansetron 4 MG/2 ML SDV IVPUSH ONE (18:21)
--- NOTE | 2021-06-13 18:28 | EDM.PDOC ---
ED HPI GENERAL MEDICAL PROBLEM - General Chief Complaint: Gastrointestinal Problem Stated Complaint: COVID POSTIVE, SICK TO STOMACH Time Seen by Provider: 06/13/21 18:12 Source of Information: Reports: Patient, Old Records History Limitations: Reports: No Limitations - History of Present Illness INITIAL COMMENTS - FREE TEXT/NARRATIVE: Nneka is a 41-year-old female presenting to the ED with concerns of dehydration, nausea and vomiting, and unable to take her medications due to the nausea and vomiting. Patient is roughly 14 days into COVID-19 and was seen and diagnosed 4 days ago in the ED. She presents with an SPO2 of 97% on room air. She reports that she has fever and chills, headache, sore throat, cough with some shortness of breath, nausea, vomiting, and decreased urine output. She has a history for obstructive sleep apnea, diabetes, hypertension, obesity, and an extensive mental health history. She is unvaccinated for COVID-19. She presented after the 10-day window to receive monoclonal antibody therapy. She states that she has been unable to eat anything for the last for 5 days because of vomiting. She tried to eat pistachio pudding this morning that did not go well. She has been able to take sips of fluid, however, when she tries to take her medicine it comes back up. She reports some dizziness today. Headache Pain Score (Numeric/FACES): 9 - Related Data Allergies Allergy/AdvReac Type Severity Reaction Status Date / Time bee venom protein (honey bee) Allergy Other Verified 06/13/21 17:34 codeine Allergy Other Verified 06/13/21 17:34 Home Meds: Home Meds Albuterol Sulfate [Proair Hfa] 8.5 gm IH Q4H 03/08/20 [History] Albuterol [Proventil Neb Soln] 2.5 mg .XX Q6H PRN 03/08/20 [History] Aspirin 81 mg PO DAILY 03/08/20 [History] Budesonide [Pulmicort] 0.5 mg INH ASDIRECTED PRN 03/08/20 [History] Cetirizine [ZyrTEC] 10 mg PO DAILY 03/08/20 [History] Colestipol [Colestipol HCl] 1 gm PO DAILY 03/08/20 [History] EPINEPHrine [Auvi-Q] 1 injection SQ ASDIRECTED PRN 03/08/20 [History] Lactase [Lactaid] 3,000 unit PO DAILY 03/08/20 [History] Levothyroxine [Synthroid] 100 mcg PO ACBREAKFAST 03/08/20 [History] Mirtazapine 30 mg PO BEDTIME 03/08/20 [History] Multivit,Iron,Minerals/Lutein [Essential Balance] 1 tab PO DAILY 03/08/20 [History] OLANZapine [Olanzapine] 20 mg PO DAILY 03/08/20 [History] OXcarbazepine [Oxcarbazepine] 600 mg PO BID 03/08/20 [History] Propranolol HCl [Propranolol] 80 mg PO DAILY 03/08/20 [History] clonazePAM [Clonazepam] 1 mg PO BID 03/08/20 [History] glipiZIDE [Glipizide ER] 10 mg PO DAILY 03/08/20 [History] hydrOXYzine HCL [Hydroxyzine HCl] 50 mg PO BEDTIME 03/08/20 [History] lamoTRIgine [Lamotrigine] 100 mg PO BID 03/08/20 [History] polyethylene glycoL 3350 [MiraLAX] 17 gm PO BEDTIME PRN #7 packet 03/08/20 [Rx] Insulin Glarg,Human.Rec.Analog [Lantus Solostar] 10 units SQ BEDTIME 07/18/20 [History] ARIPiprazole [Abilify] 10 mg PO DAILY 06/13/21 [History] Acetaminophen/Codeine [Tylenol/Codeine 120-12 MG/5 ML] 5 ml PO Q4H PRN 06/13/21 [History] Past Medical History HEENT History: Reports: Impaired Vision Respiratory History: Reports: Asthma, Sleep Apnea Gastrointestinal History: Reports: Other (See Below) Other Gastrointestinal History: constipation 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 History: Reports: None [employer] History: Reports: Musculoskeletal History: Reports: Arthritis Other Musculoskeletal History: in feet Neurological History: Reports: Migraines, Seizure Psychiatric History: Reports: Anxiety, Depression, PTSD Endocrine/Metabolic History: Reports: Diabetes, Type II, Obesity/BMI 30+ Dermatologic History: Reports: Eczema Other Dermatologic History: severe dry skin - Infectious Disease History Infectious Disease History: Reports: Novel Coronavirus - Past Surgical History Head Surgeries/Procedures: Reports: None HEENT Surgical History: Reports: None Respiratory Surgical History: Reports: None GI Surgical History: Reports: None Female Surgical History: Reports: Section, Mastectomy Other Female Surgeries/Procedures: bilateral mastectomy for cysts Endocrine Surgical History: Reports: Thyroidectomy Neurological Surgical History: Reports: None Musculoskeletal Surgical History: Reports: None Dermatological Surgical History: Reports: None Social & Family History - Family History Family Medical History: No Pertinent Family History - Tobacco Use Tobacco Use Status *Q: Never Tobacco User - Caffeine Use Caffeine Use: Reports: Tea, Other Other Caffeine Use: capacino ED ROS GENERAL - Review of Systems Review Of Systems: See Below Constitutional: Reports: Fever, Chills, Malaise, Weakness, Fatigue, Decreased Appetite HEENT: Reports: Rhinitis, Throat Pain Respiratory: Reports: Shortness of Breath, Cough Endocrine: Reports: Fatigue GI/Abdominal: Reports: Abdominal Pain, Decreased Appetite, Nausea, Vomiting : Reports: Other (Decreased urination) Musculoskeletal: Reports: Muscle Pain Skin: Reports: No Symptoms Neurological: Reports: Dizziness, Headache Psychiatric: Reports: Anxiety Hematologic/Lymphatic: Reports: No Symptoms Immunologic: Reports: No Symptoms ED EXAM, GI/ABD - Physical Exam Exam: See Below Exam Limited By: No Limitations General Appearance: Alert, Anxious, Mild Distress Eyes: Bilateral: EOMI Nose: Normal Inspection Throat/Mouth: Normal Inspection, Normal Oropharynx, Normal Voice, No Airway Compromise Head: Atraumatic, Normocephalic Neck: Normal Inspection, Supple, Non-Tender. No: Lymphadenopathy (R), Lymphadenopathy (L) Respiratory/Chest: No Respiratory Distress, No Accessory Muscle Use, Rhonchi (Mild rhonchi in both bases) Cardiovascular: Normal Peripheral Pulses, Regular Rate, Rhythm, No Murmur GI/Abdominal Exam: Tender (Mild epigastric tenderness to palpation), Abnormal Bowel Sounds (Decreased bowel sounds). No: Guarding, Rigid, Rebound Extremities: Normal Inspection, No Pedal Edema Neurological: Alert, Oriented, Normal Cognition, No Motor/Sensory Deficits Psychiatric: Anxious Skin Exam: Warm, Dry, Intact, Normal Color Course - Vital Signs Last Recorded V/S: Last Vital Signs Temp 35.8 C L 06/13/21 17:33 Pulse 95 06/13/21 17:33 Resp 16 06/13/21 17:33 BP 106/71 06/13/21 17:33 Pulse Ox 97 06/13/21 17:33 - Orders/Labs/Meds Orders: Active Orders 24 hr Category Date Time Status Sodium Chloride 0.9% [Normal Saline] 1,000 ml Med 06/13/21 18:30 Active IV ASDIRECTED Sodium Chloride 0.9% [Saline Flush] Med 06/13/21 18:20 Active 10 ml FLUSH ASDIRECTED PRN Saline Lock Insert [OM.PC] Routine Oth 06/13/21 18:20 Ordered Medication Orders Sodium Chloride (Normal Saline) 1,000 mls @ 999 mls/hr IV ASDIRECTED JEAN Last Admin: 06/13/21 18:34 Dose: 999 mls/hr Documented by: PREILOR Sodium Chloride (Sodium Chloride 0.9% 10 Ml Syringe) 10 ml FLUSH ASDIRECTED PRN PRN Reason: Keep Vein Open Last Admin: 06/13/21 18:38 Dose: 10 ml Documented by: PREILOR Labs: Laboratory Tests 06/13/21 06/13/21 06/13/21 Range/Units 18:30 18:30 18:30 WBC 6.8 (4.5-11.0) K/uL RBC 4.29 (3.30-5.50) M/uL Hgb 12.8 (12.0-15.0) g/dL Hct 36.8 (36.0-48.0) % MCV 86 (80-98) fL MCH 30 (27-31) pg MCHC 35 (32-36) % Plt Count 390 (150-400) K/uL Neut % (Auto) 64.3 (36-66) % Lymph % (Auto) 22.9 L (24-44) % Norton % (Auto) 10.1 H (2-6) % Eos % (Auto) 1.5 L (2-4) % Baso % (Auto) 1.2 H (0-1) % D-Dimer, Quantitative 1464.09 H (0.0-500.0) ng/mL Sodium 137 L (140-148) mmol/L Potassium 4.0 (3.6-5.2) mmol/L Chloride 100 (100-108) mmol/L Carbon Dioxide 27 (21-32) mmol/L Anion Gap 14.0 (5.0-14.0) mmol/L BUN 10 (7-18) mg/dL Creatinine 0.8 (0.6-1.0) mg/dL Est Cr Clr Drug Dosing 105.72 mL/min Estimated GFR (MDRD) > 60 (>60) Glucose 99 (74-106) mg/dL Lactic Acid (0.4-2.0) mmol/L Calcium 8.6 (8.5-10.1) mg/dL Ferritin 396 H (8-388) ng/ml Total Bilirubin 0.6 D (0.2-1.0) mg/dL AST 33 (15-37) U/L ALT 43 (12-78) U/L Alkaline Phosphatase 227 H D (46-116) U/L Lactate Dehydrogenase 238 H (82-234) U/L C-Reactive Protein 1.38 H (0.0-0.3) mg/dL Total Protein 7.0 (6.4-8.2) g/dL Albumin 3.5 (3.4-5.0) g/dL Globulin 3.5 (2.3-3.5) g/dL Albumin/Globulin Ratio 1.0 L (1.2-2.2) Procalcitonin ng/mL 06/13/21 06/13/21 Range/Units 18:30 18:30 WBC (4.5-11.0) K/uL RBC (3.30-5.50) M/uL Hgb (12.0-15.0) g/dL Hct (36.0-48.0) % MCV (80-98) fL MCH (27-31) pg MCHC (32-36) % Plt Count (150-400) K/uL Neut % (Auto) (36-66) % Lymph % (Auto) (24-44) % Norton % (Auto) (2-6) % Eos % (Auto) (2-4) % Baso % (Auto) (0-1) % D-Dimer, Quantitative (0.0-500.0) ng/mL Sodium (140-148) mmol/L Potassium (3.6-5.2) mmol/L Chloride (100-108) mmol/L Carbon Dioxide (21-32) mmol/L Anion Gap (5.0-14.0) mmol/L BUN (7-18) mg/dL Creatinine (0.6-1.0) mg/dL Est Cr Clr Drug Dosing mL/min Estimated GFR (MDRD) (>60) Glucose (74-106) mg/dL Lactic Acid 1.0 (0.4-2.0) mmol/L Calcium (8.5-10.1) mg/dL Ferritin (8-388) ng/ml Total Bilirubin (0.2-1.0) mg/dL AST (15-37) U/L ALT (12-78) U/L Alkaline Phosphatase (46-116) U/L Lactate Dehydrogenase (82-234) U/L C-Reactive Protein (0.0-0.3) mg/dL Total Protein (6.4-8.2) g/dL Albumin (3.4-5.0) g/dL Globulin (2.3-3.5) g/dL Albumin/Globulin Ratio (1.2-2.2) Procalcitonin < 0.05 ng/mL Meds: Medications Generic Name Dose Route Start Last Admin Trade Name Freq PRN Reason Stop Dose Admin Sodium Chloride 1,000 mls @ 999 mls/hr 06/13/21 18:30 06/13/21 18:34 Normal Saline IV 999 mls/hr ASDIRECTED JEAN Administration Sodium Chloride 10 ml 06/13/21 18:20 06/13/21 18:38 Sodium Chloride 0.9% 10 Ml Syringe FLUSH 10 ml ASDIRECTED PRN Administration Keep Vein Open Discontinued Medications Generic Name Dose Route Start Last Admin Trade Name Topherq PRN Reason Stop Dose Admin Ondansetron HCl 4 mg 06/13/21 18:21 06/13/21 18:36 Ondansetron 4 Mg/2 Ml Sdv IVPUSH 06/13/21 18:22 4 mg ONETIME ONE Administration - Re-Assessments/Exams Free Text/Narrative Re-Assessment/Exam: 06/13/21 20:10 I reviewed the labs showing a normal CBC with a leukocyte count of 6.8, hemoglobin of 12.8 and platelet count of 390,000. Her comprehensive metabolic panel is also normal with a sodium 137, potassium 4.0, chloride of 100, bicarbonate of 27, BUN of 10 with a creatinine of 0.8 and a glucose of 99. AST and ALT are normal. Ferritin is mildly elevated at 396. Lactate is normal at 1.0, LDH is mildly elevated at 238, D-dimer is elevated at 1464, CRP is mildly elevated 1.38 and procalcitonin is negative at <0.05. The patient seems to be recovering from Covid but the problem is the nausea and vomiting and have been unable to take medications. We will send her with a prescription for Zofran ODT which should help with these things. She did receive a liter of IV normal saline and is feeling somewhat better but still ill. I did explain that this will have to run its course as she is outside of the window for any conventional therapy at this time. I also explained that she does not meet the requirements for hospitalization as her SPO2 is greater than 90% on room air. At this time patient is suitable for discharge home in satisfactory condition. Departure - Departure Time of Disposition: 20:12 Disposition: Home, Self-Care 01 Clinical Impression: COVID-19, Mild dehydration Nausea and vomiting Qualifiers: Vomiting type: unspecified Qualified Code(s): R11.2 - Nausea with vomiting, unspecified - Discharge Information Instructions: Dehydration, Adult, [id number], 10 Things You Can Do to Manage Your COVID-19 Symptoms at Home - [facility] (01/05/2021), Nausea and Vomiting, Adult, [id number] Referrals: PCP,None [Primary Care Provider] - Forms: ED Department Discharge Care Plan Goals: Your work-up today shows that you suffer some mild dehydration due to the COVID- 19 and your inability to eat much or drink much. I am sending you home with a prescription for Zofran that is in the [facility] med machine to help with the nausea and vomiting. I would recommend taking small amounts of fluids frequently so that not too much is sitting in the stomach. Fluids at room temperature are better than fluids that are hot or cold as it will sit in your stomach until they either warm up or cool down. This potentiates the likelihood of vomiting. Unfortunately, this has to run its course and there is no "magic bullet" to make it go away. Sepsis Event Note (ED) - Focused Exam Vital Signs: Vital Signs Temp Pulse Resp BP Pulse Ox 06/13/21 17:33 35.8 C L 95 16 106/71 97 06/13/21 17:28 35.8 C L 95 16 106/71 97 - Problem List & Annotations (1) COVID-19 SNOMED Code(s): 106849475 Code(s): U07.1 - COVID-19 Status: Acute Priority: High Current Visit: Yes (2) Mild dehydration SNOMED Code(s): 9201098570678 Code(s): E86.0 - DEHYDRATION Status: Acute Priority: High Current Visit: Yes (3) Nausea and vomiting SNOMED Code(s): 90887937 Code(s): R11.2 - NAUSEA WITH VOMITING, UNSPECIFIED Status: Acute Gricelda ority: High Current Visit: Yes Qualifiers: Vomiting type: unspecified Qualified Code(s): R11.2 - Nausea with vomiting, unspecified - Problem List Review Problem List Initiated/Reviewed/Updated: Yes - My Orders Last 24 Hours: My Active Orders 06/13/21 18:20 Sodium Chloride 0.9% [Saline Flush] 10 ml FLUSH ASDIRECTED PRN Saline Lock Insert [OM.PC] Routine 06/13/21 18:30 Sodium Chloride 0.9% [Normal Saline] 1,000 ml IV ASDIRECTED - Assessment/Plan Last 24 Hours: My Active Orders 06/13/21 18:20 Sodium Chloride 0.9% [Saline Flush] 10 ml FLUSH ASDIRECTED PRN Saline Lock Insert [OM.PC] Routine 06/13/21 18:30 Sodium Chloride 0.9% [Normal Saline] 1,000 ml IV ASDIRECTED
[2021-06-13] MEDS ORDERED: Sodium Chloride 0.9% 1,000 ML IV SCH (18:30)
== END 2021-06-13 20:21 | disposition home or self-care (01) ==
LOC: JP.ED 17:15
DX: U07.1 COVID-19 (principal); E86.0 Dehydration; J45.909 Unspecified asthma, uncomplicated; M19.90 Unspecified osteoarthritis, unspecified site; E11.9 Type 2 diabetes mellitus without complications; E66.9 Obesity, unspecified; Z68.29 Body mass index [BMI] 29.0-29.9, adult; Z91.030 Bee allergy status; Z88.5 Allergy status to narcotic agent; Z79.82 Long term (current) use of aspirin; Z79.4 Long term (current) use of insulin; Z79.899 Other long term (current) drug therapy
CPT/HCPCS: 36415; 80053; 82728; 83605; 83615; 84145; 85025; 85379; 86140; 96374; 99284; J2405; J7030

== ENCOUNTER 2021-12-21 17:40 | Emergency (ER) | payer MEDICAID | END 2021-12-21 18:44 | disposition home or self-care (01) | LOC: JP.ED 17:40 | DX: U07.1 COVID-19 (principal); E11.9 Type 2 diabetes mellitus without complications; E66.9 Obesity, unspecified; Z68.31 Body mass index [BMI] 31.0-31.9, adult; Z79.82 Long term (current) use of aspirin; Z79.899 Other long term (current) drug therapy | CPT/HCPCS: 87081; 87880-QW; 99281; 99283; U0002 ==

== ENCOUNTER 2022-05-18 18:14 | Emergency (ER) | payer MEDICAID ==
[2022-05-18 19:07] LABS: ESTIMATED GFR 81 mL/min (>60)
== END 2022-05-18 20:22 | disposition home or self-care (01) ==
LOC: JP.ED 18:14
DX: E11.42 Type 2 diabetes mellitus with diabetic polyneuropathy (principal); J45.909 Unspecified asthma, uncomplicated; M19.90 Unspecified osteoarthritis, unspecified site; E66.9 Obesity, unspecified; Z68.33 Body mass index [BMI] 33.0-33.9, adult; Z91.030 Bee allergy status; Z88.5 Allergy status to narcotic agent; Z79.82 Long term (current) use of aspirin; Z79.4 Long term (current) use of insulin; Z79.899 Other long term (current) drug therapy
CPT/HCPCS: 36415; 80053; 82746; 85025; 86140; 99283

== ENCOUNTER 2022-06-22 09:41 | Emergency (ER) | payer MEDICAID | END 2022-06-22 10:41 | disposition home or self-care (01) | LOC: JP.ED 09:41 | DX: J45.909 Unspecified asthma, uncomplicated (principal); J11.1 Influenza due to unidentified influenza virus with other respiratory manifestations; E11.40 Type 2 diabetes mellitus with diabetic neuropathy, unspecified; E66.9 Obesity, unspecified; Z68.34 Body mass index [BMI] 34.0-34.9, adult; Z91.030 Bee allergy status; Z88.5 Allergy status to narcotic agent; Z79.899 Other long term (current) drug therapy; Z79.82 Long term (current) use of aspirin; Z79.4 Long term (current) use of insulin; Z86.16 Personal history of COVID-19; Z20.822 Contact with and (suspected) exposure to COVID-19 | CPT/HCPCS: 99284; U0002 ==

== ENCOUNTER 2022-07-28 10:41 | Emergency (ER) | payer MEDICAID ==
[2022-07-28 13:17] LABS: CORONAVIRUS COVID-19 NAA NEGATIVE (NEGATIVE)
== END 2022-07-28 13:01 | disposition home or self-care (01) ==
LOC: JP.ED 10:41
DX: J02.9 Acute pharyngitis, unspecified (principal); J45.909 Unspecified asthma, uncomplicated; E11.21 Type 2 diabetes mellitus with diabetic nephropathy; R43.9 Unspecified disturbances of smell and taste; E03.9 Hypothyroidism, unspecified; M19.90 Unspecified osteoarthritis, unspecified site; E66.9 Obesity, unspecified; Z68.35 Body mass index [BMI] 35.0-35.9, adult; Z91.030 Bee allergy status; Z88.5 Allergy status to narcotic agent; Z79.82 Long term (current) use of aspirin; Z79.899 Other long term (current) drug therapy; Z20.822 Contact with and (suspected) exposure to COVID-19
CPT/HCPCS: 0241U; 99283

== ENCOUNTER 2022-08-05 16:58 | Emergency (ER) | payer MEDICAID ==
[2022-08-05] MEDS ORDERED: Sodium Chloride 0.9% 10 ML Syringe FLUSH PRN (17:20)
[2022-08-05] MEDS ORDERED: Sodium Chloride 0.9% 1,000 ML IV ONE (17:40)
[2022-08-05] MEDS ORDERED: Insulin Lispro 100 Units/ML 3 ML Vial SUBCUT ONE (17:41)
[2022-08-05] MEDS ORDERED: 50% Dextrose in Water 50 ML Syringe IVPUSH PRN (17:41)
[2022-08-05] MEDS ORDERED: Glucagon,Human Recombinant 1 MG Vial IM PRN (17:41)
[2022-08-05] MEDS ORDERED: Ondansetron 4 MG/2 ML SDV IVPUSH ONE (17:43)
[2022-08-05 18:03] LABS: ESTIMATED GFR 81 mL/min (>60)
[2022-08-05 18:21] LABS: CORONAVIRUS COVID-19 NAA NEGATIVE (NEGATIVE)
== END 2022-08-05 18:46 | disposition home or self-care (01) ==
LOC: JP.ED 16:58
DX: A08.4 Viral intestinal infection, unspecified (principal); E13.65 Other specified diabetes mellitus with hyperglycemia; J45.909 Unspecified asthma, uncomplicated; E13.21 Other specified diabetes mellitus with diabetic nephropathy; M19.90 Unspecified osteoarthritis, unspecified site; E03.9 Hypothyroidism, unspecified; E66.9 Obesity, unspecified; Z68.34 Body mass index [BMI] 34.0-34.9, adult; Z91.030 Bee allergy status; Z88.5 Allergy status to narcotic agent; Z79.82 Long term (current) use of aspirin; Z79.84 Long term (current) use of oral hypoglycemic drugs; Z79.899 Other long term (current) drug therapy; Z20.822 Contact with and (suspected) exposure to COVID-19
CPT/HCPCS: 0241U; 36415; 80053; 82009; 82803; 82947; 83690; 85025; 96361; 96374; 99283; 99284; J2405; J7030; J1815-GY

== ENCOUNTER 2023-03-04 11:29 | Emergency (ER) | payer MEDICAID ==
[2023-03-04] MEDS ORDERED: Ketorolac 30 MG/ML SDV IVPUSH ONE (12:07)
[2023-03-04 12:24] LABS: BASOPHILS ABSOLUTE AUTO 0.05 K/uL (0.00-0.10); BASOPHILS PERCENT AUTO 0.5 % (0.1-1.3); EOSINOPHILS ABSOLUTE AUTO 0.03 K/uL (0.00-0.40); EOSINOPHILS PERCENT AUTO 0.3 % (0.0-5.4); HEMATOCRIT 37.4 % (34.3-46.0); HEMOGLOBIN 13.2 g/dL (11.2-15.5); IMMATURE GRAN ABSOLUTE AUTO 0.05 K/uL (0.00-0.23); IMMATURE GRAN PERCENT AUTO 0.5 % (0.0-0.7); LYMPHOCYTES ABSOLUTE AUTO 2.24 K/uL (0.8-3.3); LYMPHOCYTES PERCENT AUTO 24.3 % (11.4-47.7); MEAN CORPUSCULAR HGB CONC 35.3 g/dL (31.6-35.5); MEAN CORPUSCULAR VOLUME 87.8 fL (81.4-99.0); MONOCYTES ABSOLUTE AUTO 0.53 K/uL (0.20-0.90); MONOCYTES PERCENT AUTO 5.7 % (3.3-12.6); NEUTROPHILS ABSOLUTE AUTO 6.33 K/uL (1.0-7.6); NEUTROPHILS PERCENT AUTO 68.7 % (40.0-78.1); PLATELET COUNT,PLT 273 K/uL (130-375); RED BLOOD CELL COUNT 4.26 M/uL (3.77-5.24); WHITE BLOOD CELL COUNT,WBC 9.2 K/uL (3.2-11.0)
[2023-03-04 12:44] LABS: PROTHROMBIN TIME 9.8 sec (9.2-10.6); PTT,PARTIAL THROMBOPLSTIN TIME 24.5 sec (21.8-27.3)
[2023-03-04 12:48] LABS: CALCIUM 8.7 mg/dL (8.5-10.1); CREATININE 0.9 mg/dL (0.6-1.0); EST CRCL DRUG DOSING (CG) 93.01 mL/min; POTASSIUM,K 4.5 mmol/L (3.6-5.2)
[2023-03-04 12:51] LABS: ANION GAP 13.5 mmol/L (5.0-14.0)
== END 2023-03-04 13:23 | disposition home or self-care (01) ==
LOC: JP.ED 11:29
DX: R07.89 Other chest pain (principal); F41.9 Anxiety disorder, unspecified; J45.909 Unspecified asthma, uncomplicated; E11.40 Type 2 diabetes mellitus with diabetic neuropathy, unspecified; K21.9 Gastro-esophageal reflux disease without esophagitis; E66.9 Obesity, unspecified; Z68.34 Body mass index [BMI] 34.0-34.9, adult; Z95.5 Presence of coronary angioplasty implant and graft; Z91.030 Bee allergy status; Z79.82 Long term (current) use of aspirin; Z79.4 Long term (current) use of insulin; Z79.899 Other long term (current) drug therapy; Z87.891 Personal history of nicotine dependence; Z86.16 Personal history of COVID-19
CPT/HCPCS: 36415; 71045; 80048; 84484; 85025; 85379; 85610; 85651; 85730; 93005; 96374; 99285; J1885; 93010; 99283

== ENCOUNTER 2023-04-26 15:52 | Emergency (ER) | payer MEDICAID | END 2023-04-26 17:19 | disposition home or self-care (01) | LOC: JP.ED 15:52 | DX: S90.111A Contusion of right great toe without damage to nail, initial encounter (principal); J45.909 Unspecified asthma, uncomplicated; E11.21 Type 2 diabetes mellitus with diabetic nephropathy; M19.90 Unspecified osteoarthritis, unspecified site; E03.9 Hypothyroidism, unspecified; E66.9 Obesity, unspecified; Z68.33 Body mass index [BMI] 33.0-33.9, adult; Z86.16 Personal history of COVID-19; Z88.5 Allergy status to narcotic agent; Z91.030 Bee allergy status; Z79.82 Long term (current) use of aspirin; Z79.899 Other long term (current) drug therapy; Z79.4 Long term (current) use of insulin; W22.8XXA Striking against or struck by other objects, initial encounter; Y92.009 Unspecified place in unspecified non-institutional (private) residence as the place of occurrence of the external cause | CPT/HCPCS: 73660-26-T5; 73660-T5; 99283 ==

== ENCOUNTER 2023-06-23 14:53 | Emergency (ER) | payer MEDICAID | END 2023-06-23 17:05 | disposition home or self-care (01) | LOC: JP.ED 14:53 | DX: U07.1 COVID-19 (principal); E11.9 Type 2 diabetes mellitus without complications; E03.9 Hypothyroidism, unspecified; E66.9 Obesity, unspecified; Z68.33 Body mass index [BMI] 33.0-33.9, adult; Z88.5 Allergy status to narcotic agent; Z91.030 Bee allergy status; Z79.82 Long term (current) use of aspirin; Z79.899 Other long term (current) drug therapy | CPT/HCPCS: 99283 ==

== ENCOUNTER 2023-10-06 12:06 | Emergency (ER) | payer MEDICAID ==
[2023-10-06 13:48] LABS: BASOPHILS ABSOLUTE AUTO 0.04 K/uL (0.00-0.10); BASOPHILS PERCENT AUTO 0.3 % (0.1-1.3); EOSINOPHILS PERCENT AUTO 0.1 % (0.0-5.4); HEMATOCRIT 37.7 % (34.3-46.0); HEMOGLOBIN 13.5 g/dL (11.2-15.5); IMMATURE GRAN ABSOLUTE AUTO 0.12 K/uL (0.00-0.23); IMMATURE GRAN PERCENT AUTO 0.8 % (0.0-0.7); LYMPHOCYTES ABSOLUTE AUTO 1.25 K/uL (0.8-3.3); LYMPHOCYTES PERCENT AUTO 8.8 % (11.4-47.7); MEAN CORPUSCULAR HEMOGLOBIN 31.5 pg (31.6-35.5); MEAN CORPUSCULAR HGB CONC 35.8 g/dL (31.6-35.5); MEAN CORPUSCULAR VOLUME 87.9 fL (81.4-99.0); MONOCYTES ABSOLUTE AUTO 0.32 K/uL (0.20-0.90); MONOCYTES PERCENT AUTO 2.3 % (3.3-12.6); NEUTROPHILS ABSOLUTE AUTO 12.47 K/uL (1.0-7.6); NEUTROPHILS PERCENT AUTO 87.7 % (40.0-78.1); PLATELET COUNT,PLT 296 K/uL (130-375); RED BLOOD CELL COUNT 4.29 M/uL (3.77-5.24); WHITE BLOOD CELL COUNT,WBC 14.2 K/uL (3.2-11.0)
[2023-10-06 14:02] LABS: EOSINOPHILS ABSOLUTE AUTO 0.02 K/uL (0.00-0.40)
[2023-10-06 14:07] LABS: A/G RATIO 1.2 (1.2-2.2); ALANINE AMINOTRANSFERASE,ALT 30 U/L (12-78); ALBUMIN 4.5 g/dL (3.4-5.0); ALKALINE PHOSPHATASE 125 U/L (46-116); ASPARTATE AMNIOTRANSFERASE,AST 22 U/L (15-37); BILIRUBIN TOTAL 0.5 mg/dL (0.2-1.0); BLOOD UREA NITROGEN,BUN 10 mg/dL (7-18); CALCIUM 9.2 mg/dL (8.5-10.1); CARBON DIOXIDE,CO2 25 mmol/L (21-32); CHLORIDE,CL 102 mmol/L (100-108); CREATININE 0.9 mg/dL (0.6-1.0); EST CRCL DRUG DOSING (CG) 89.15 mL/min; ESTIMATED GFR 81 mL/min (>60); GLUCOSE RANDOM 122 mg/dL (74-106); POTASSIUM,K 4.3 mmol/L (3.6-5.2); PROTEIN TOTAL,TP 8.4 g/dL (6.4-8.2); SODIUM,NA 138 mmol/L (140-148)
[2023-10-06 14:09] LABS: ANION GAP 15.3 mmol/L (5.0-14.0)
[2023-10-06] MEDS: Ketorolac 30 MG/ML SDV IM ONE (15:01)
[2023-10-06 15:18] LABS: APPEARANCE,URINE CLEAR (CLEAR); BILIRUBIN,URINE NEGATIVE (NEGATIVE); COLOR,URINE YELLOW (YELLOW); GLUCOSE,URINE NEGATIVE (NEGATIVE); KETONES,URINE 40 mg/dL (NEGATIVE); LEUKOCYTE ESTERASE,URINE NEGATIVE (NEGATIVE); NITRITE,URINE NEGATIVE (NEGATIVE); OCCULT BLOOD,URINE NEGATIVE (NEGATIVE); PROTEIN,URINE NEGATIVE (NEGATIVE); UROBILINOGEN,URINE 0.2 EU/dL (0.2-1.0)
[2023-10-06 15:23] LABS: AMORPHOUS SEDIMENT,URINE NOT SEEN; BACTERIA,URINE RARE; EPITHELIAL CELLS,URINE RARE; MUCUS,URINE NOT SEEN; RBC,URINE 0-5 (0-5); WBC,URINE 0-5 (0-5)
[2023-10-06 16:23] LABS: CORONAVIRUS COVID-19 NAA NEGATIVE (NEGATIVE); INFLUENZA A NAA NEGATIVE (NEGATIVE); INFLUENZA B NAA NEGATIVE (NEGATIVE); RESPIRATORY SYNCYTIAL VIR NAA NEGATIVE (NEGATIVE)
== END 2023-10-06 17:10 | disposition home or self-care (01) ==
LOC: JP.ED 12:06
DX: R42 Dizziness and giddiness (principal); T43.3X5A Adverse effect of phenothiazine antipsychotics and neuroleptics, initial encounter; J45.909 Unspecified asthma, uncomplicated; K21.9 Gastro-esophageal reflux disease without esophagitis; E11.40 Type 2 diabetes mellitus with diabetic neuropathy, unspecified; E03.9 Hypothyroidism, unspecified; Z91.030 Bee allergy status; Z88.5 Allergy status to narcotic agent; Z79.899 Other long term (current) drug therapy; Z79.82 Long term (current) use of aspirin; Z86.16 Personal history of COVID-19; Z79.4 Long term (current) use of insulin; Z79.51 Long term (current) use of inhaled steroids
CPT/HCPCS: 0241U; 36415; 80053; 81001; 83605; 85025; 96372; 99285; J1885

== ENCOUNTER 2024-04-01 06:28 | Day surgery (SDC) | payer MEDICAID ==
[2024-04-01] MEDS ORDERED: fentaNYL 250 MCG/5 ML SDV ONE (07:12)
[2024-04-01] MEDS ORDERED: Midazolam 1 MG/ML 2 ML SDV ONE (07:12)
[2024-04-01] MEDS ORDERED: Ondansetron 4 MG/2 ML SDV ONE (07:13)
[2024-04-01] MEDS ORDERED: Dexamethasone 4 MG/ML SDV ONE (07:13)
[2024-04-01] MEDS ORDERED: Rocuronium 50 MG/5 ML Vial ONE (07:13)
[2024-04-01] MEDS ORDERED: Glycopyrrolate 0.2 MG/ML 5 ML MDV ONE (07:13)
[2024-04-01] MEDS ORDERED: Neostigmine Methylsulfate 10 MG/10 ML MDV ONE (07:13)
[2024-04-01] MEDS ORDERED: Propofol 200 MG/20 ML SDV ONE (07:13)
[2024-04-01] MEDS: Sodium Chloride 0.9% 1,000 ML IV SCH (07:18)
[2024-04-01] MEDS: Albuterol/Ipratropium 3.0-0.5 MG/3 ML Neb Soln NEB ONE (07:21)
[2024-04-01] MEDS: ceFAZolin 2 GM in Premix Bag 1 BAG IV ONE (07:55)
[2024-04-01] MEDS: metroNIDAZOLE/Normal Saline 500 MG in Premix Bag 1 BAG IV ONE (08:25)
[2024-04-01] MEDS: Ropivacaine 50 ML, dexAMETHasone 8 MG, EPINEPHrine 0.4 MG, Sodium Chloride 0.9% 27.6 ML NERVRT SCH (08:28)
[2024-04-01] MEDS: Bupivacaine 0.5%/EPINEPHrine 1:200,000 50 ML MDV ONE (08:28)
[2024-04-01] MEDS ORDERED: Sugammadex Sodium 200 MG/2 ML VIAL IV ONE (08:45)
[2024-04-01] MEDS: HYDROmorphone 0.5 MG/0.5 ML Syringe IVPUSH ONE (09:58)
== END 2024-04-01 12:49 | disposition home or self-care (01) ==
LOC: JP.SDS 06:28
PROVIDERS: ATTEND Surgery
DX: D3A.8 Other benign neuroendocrine tumors (principal); K38.8 Other specified diseases of appendix; N83.11 Corpus luteum cyst of right ovary; J45.909 Unspecified asthma, uncomplicated; G40.909 Epilepsy, unspecified, not intractable, without status epilepticus; E11.42 Type 2 diabetes mellitus with diabetic polyneuropathy; E03.9 Hypothyroidism, unspecified; K21.9 Gastro-esophageal reflux disease without esophagitis; Z79.4 Long term (current) use of insulin; Z79.899 Other long term (current) drug therapy
CPT/HCPCS: 00840; 44970; 58661; 81025; 88304; 88305; 88307; 88341; 88342; 94640; J0171; J0690; J1100; J1171; J1596; J1836; J2250; J2405; J2704; J2710; J2795; J3010; J3490; J7030; J7620

== ENCOUNTER 2024-10-08 18:09 | Emergency (ER) | payer MEDICAID ==
[2024-10-08] MEDS: Bacitracin Oint 1 GM U/D Packet TOP ONE (21:04)
== END 2024-10-08 21:04 | disposition home or self-care (01) ==
LOC: JP.ED 18:09
DX: S90.822A Blister (nonthermal), left foot, initial encounter (principal); E11.21 Type 2 diabetes mellitus with diabetic nephropathy; E03.9 Hypothyroidism, unspecified; Z91.030 Bee allergy status; Z88.5 Allergy status to narcotic agent; Z91.011 Allergy to milk products; Z79.82 Long term (current) use of aspirin; Z79.899 Other long term (current) drug therapy; X58.XXXA Exposure to other specified factors, initial encounter
CPT/HCPCS: 99283

== ENCOUNTER 2024-10-31 09:12 | Emergency (ER) | payer MEDICAID ==
[2024-10-31 10:12] LABS: BASOPHILS ABSOLUTE AUTO 0.07 K/uL (0.00-0.10); BASOPHILS PERCENT AUTO 0.9 % (0.1-1.3); EOSINOPHILS ABSOLUTE AUTO 0.51 K/uL (0.00-0.40); EOSINOPHILS PERCENT AUTO 6.3 % (0.0-5.4); HEMATOCRIT 34.6 % (34.3-46.0); HEMOGLOBIN 11.8 g/dL (11.2-15.5); IMMATURE GRAN ABSOLUTE AUTO 0.06 K/uL (0.00-0.23); IMMATURE GRAN PERCENT AUTO 0.7 % (0.0-0.7); LYMPHOCYTES ABSOLUTE AUTO 2.01 K/uL (0.8-3.3); LYMPHOCYTES PERCENT AUTO 24.8 % (11.4-47.7); MEAN CORPUSCULAR HEMOGLOBIN 31.6 pg (31.6-35.5); MEAN CORPUSCULAR HGB CONC 34.1 g/dL (31.6-35.5); MEAN CORPUSCULAR VOLUME 92.5 fL (81.4-99.0); MONOCYTES ABSOLUTE AUTO 0.57 K/uL (0.20-0.90); NEUTROPHILS ABSOLUTE AUTO 4.88 K/uL (1.0-7.6); NEUTROPHILS PERCENT AUTO 60.3 % (40.0-78.1); PLATELET COUNT,PLT 241 K/uL (130-375); RED BLOOD CELL COUNT 3.74 M/uL (3.77-5.24); WHITE BLOOD CELL COUNT,WBC 8.1 K/uL (3.2-11.0)
== END 2024-10-31 13:28 | disposition home or self-care (01) ==
LOC: JP.ED 09:12
DX: R60.0 Localized edema (principal); J45.909 Unspecified asthma, uncomplicated; K21.9 Gastro-esophageal reflux disease without esophagitis; E11.40 Type 2 diabetes mellitus with diabetic neuropathy, unspecified; E03.9 Hypothyroidism, unspecified; Z79.899 Other long term (current) drug therapy; Z79.82 Long term (current) use of aspirin; Z79.84 Long term (current) use of oral hypoglycemic drugs; Z91.030 Bee allergy status; Z88.5 Allergy status to narcotic agent; Z88.8 Allergy status to other drugs, medicaments and biological substances; Z91.011 Allergy to milk products
CPT/HCPCS: 36415; 83880; 85025; 85379; 93970; 99283; 99284

== ENCOUNTER 2025-03-08 17:05 | Emergency (ER) | payer MEDICAID ==
[2025-03-08 19:45] LABS: BASOPHILS ABSOLUTE AUTO 0.10 K/uL (0.00-0.10); BASOPHILS PERCENT AUTO 1.0 % (0.1-1.3); EOSINOPHILS ABSOLUTE AUTO 0.36 K/uL (0.00-0.40); EOSINOPHILS PERCENT AUTO 3.6 % (0.0-5.4); IMMATURE GRAN ABSOLUTE AUTO 0.05 K/uL (0.00-0.23); IMMATURE GRAN PERCENT AUTO 0.5 % (0.0-0.7); LYMPHOCYTES ABSOLUTE AUTO 3.66 K/uL (0.8-3.3); LYMPHOCYTES PERCENT AUTO 36.3 % (11.4-47.7); MONOCYTES ABSOLUTE AUTO 0.73 K/uL (0.20-0.90); MONOCYTES PERCENT AUTO 7.2 % (3.3-12.6); NEUTROPHILS ABSOLUTE AUTO 5.18 K/uL (1.0-7.6); NEUTROPHILS PERCENT AUTO 51.4 % (40.0-78.1); PLATELET COUNT,PLT 284 K/uL (130-375); RED BLOOD CELL COUNT 4.09 M/uL (3.77-5.24); WHITE BLOOD CELL COUNT,WBC 10.1 K/uL (3.2-11.0)
[2025-03-08] MEDS: Sodium Chloride 0.9% 10 ML Syringe FLUSH PRN (19:45)
[2025-03-08 20:05] LABS: A/G RATIO 1.1 (1.2-2.2); ALANINE AMINOTRANSFERASE,ALT 31 U/L (12-78); ASPARTATE AMNIOTRANSFERASE,AST 31 U/L (15-37); BILIRUBIN TOTAL 0.3 mg/dL (0.2-1.0); BLOOD UREA NITROGEN,BUN 8 mg/dL (7-18); CARBON DIOXIDE,CO2 29 mmol/L (21-32); CHLORIDE,CL 103 mmol/L (100-108); CREATININE 0.8 mg/dL (0.6-1.0); EST CRCL DRUG DOSING (CG) 102.48 mL/min; ESTIMATED GFR 93 mL/min (>60); GLUCOSE RANDOM 90 mg/dL (74-106); POTASSIUM,K 4.2 mmol/L (3.6-5.2); PROTEIN TOTAL,TP 8.1 g/dL (6.4-8.2); SODIUM,NA 139 mmol/L (140-148)
[2025-03-08] MEDS: Iopamidol 755 Mg/ML 100 ML Bottle IV SCH (20:36)
== END 2025-03-08 22:22 | disposition home or self-care (01) ==
LOC: JP.ED 17:05
DX: H57.11 Ocular pain, right eye (principal); J45.909 Unspecified asthma, uncomplicated; K21.9 Gastro-esophageal reflux disease without esophagitis; E11.40 Type 2 diabetes mellitus with diabetic neuropathy, unspecified; E03.9 Hypothyroidism, unspecified; Z90.49 Acquired absence of other specified parts of digestive tract; Z91.030 Bee allergy status; Z88.5 Allergy status to narcotic agent; Z91.011 Allergy to milk products; Z88.8 Allergy status to other drugs, medicaments and biological substances; Z79.82 Long term (current) use of aspirin; Z79.85 Long-term (current) use of injectable non-insulin antidiabetic drugs; Z79.899 Other long term (current) drug therapy; Z79.890 Hormone replacement therapy
CPT/HCPCS: 36415; 70450; 70496; 80053; 83605; 85025; 99284; Q9967

== ENCOUNTER 2025-04-20 09:25 | Day surgery (SDC) | payer MEDICAID ==
[2025-04-20] MEDS: Lactated Ringers 1,000 ML IV SCH (09:55)
[2025-04-20] MEDS ORDERED: Propofol 200 MG/20 ML SDV ONE ×2 (10:06→11:56)
[2025-04-20] MEDS ORDERED: Midazolam 1 MG/ML 2 ML SDV ONE (10:06)
[2025-04-20] MEDS ORDERED: fentaNYL 100 MCG/2 ML SDV ONE (10:06)
[2025-04-20] MEDS ORDERED: Ondansetron 4 MG/2 ML SDV ONE (11:32)
== END 2025-04-20 13:40 | disposition home or self-care (01) ==
LOC: JP.SDS 09:25
PROVIDERS: ATTEND Surgery
DX: Z12.11 Encounter for screening for malignant neoplasm of colon (principal); I10 Essential (primary) hypertension; E78.00 Pure hypercholesterolemia, unspecified; E11.9 Type 2 diabetes mellitus without complications; E03.9 Hypothyroidism, unspecified; E66.9 Obesity, unspecified; Z79.4 Long term (current) use of insulin; Z88.5 Allergy status to narcotic agent; Z79.82 Long term (current) use of aspirin; Z87.891 Personal history of nicotine dependence; Z79.899 Other long term (current) drug therapy; Z79.890 Hormone replacement therapy; Z85.030 Personal history of malignant carcinoid tumor of large intestine; Z91.030 Bee allergy status; Z91.0110 Allergy to milk products, unspecified
CPT/HCPCS: 00811; 45380; J2250; J2405; J2704; J3010; J7120; 88305